=== PATIENT | female | born 1940 | race Caucasian/White ===

== ENCOUNTER 2019-12-04 14:32 | Inpatient (IN) ==
[2019-12-04] MEDS ORDERED: SODIUM CHLORIDE 0.9% 500 ML IV SCH (14:45)
--- NOTE | 2019-12-04 14:59 | XRay Report ---
XR chest 1V portable HISTORY: weakness COMPARISON: Chest 08/31/2019. FINDINGS: The visualized right ventriculoperitoneal shunt is intact. The heart remains enlarged. No e vidence for pulmonary edema. There are low lung volumes. No pleural effusions. No pneumothorax. A few bibasilar linear densities. No new focal lung consolidations to suggest pneumonia. IMPRESSION: Stable cardiomegaly. A few bibasilar linear densities favor subsegmental atelectasis. ACT 112: Negative or not required by law. Electronically signed by: Stephen Carroll M.D. 12/04/2019 2:58 PM
[2019-12-04 15:20] LABS: Basophils # (auto) 0.01 K/uL (0-0.2); Basophils % (auto) 0.1 %; Eosinophils # (auto) 0.22 K/uL (0-0.5); Eosinophils % (auto) 2.3 %; Hematocrit (blood only) 41.1 % (37-47); Hemoglobin 13.8 g/dL (12.0-16.0); Immature Granulocytes # (auto) 0.02 K/uL (0.00-0.02); Immature Granulocytes % (auto) 0.2 %; Lymphocytes # (auto) 1.19 K/uL (1.2-3.4); Lymphocytes % (auto) 12.2 %; Mean Corpuscular Hemoglobin 30.9 pg (25-34); Mean Corpuscular Hgb Conc 33.6 g/dL (32-36); Mean Corpuscular Volume 91.9 fL (80-100); Mean Platelet Volume 9.2 fL (7.4-10.4); Monocytes # (auto) 0.84 K/uL (0.11-0.59); Monocytes % (auto) 8.6 %; Neutrophils # (auto) 7.46 K/uL (1.4-6.5); Neutrophils % (auto) 76.6 %; Platelet Count 211 K/uL (130-400); RDW Coefficient of Variation 14.5 % (11.5-14.5); RDW Standard Deviation 48.9 fL (36.4-46.3); Red Blood Count 4.47 M/uL (4.2-5.4); White Blood Count 9.74 K/uL (4.8-10.8)
[2019-12-04 15:22] LABS: Base Excess VBG 3.3 mEq/L; HCO3 VBG 29 mmol/L; PCO2 VBG 47 mmHg (38-50); PO2 VBG 33 mmHg
[2019-12-04 15:23] LABS: Oxygen Saturation VBG < 60.0 %
[2019-12-04 15:38] LABS: Alanine Aminotransferase 31 U/L (12-78); Albumin Level 3.6 gm/dl (3.4-5.0); Aspartate Aminotransferase 32 U/L (15-37); Blood Urea Nitrogen 24 mg/dl (7-18); Calcium 9.9 mg/dl (8.5-10.1); Carbon Dioxide 28 mmol/L (21-32); Chloride 106 mmol/L (98-107); Creatinine Clr Calc Pharmacy 50.9 ml/min; Est GFR (African American) 59.2; Est GFR (Non-African American) 51.1; Glucose 165 mg/dl (70-99); Magnesium 1.9 mg/dl (1.8-2.4); Potassium 4.2 mmol/L (3.5-5.1); Sodium 139 mmol/L (136-145)
[2019-12-04 15:40] LABS: Prothrombin Time 10.3 Seconds (9.0-12.0)
[2019-12-04 15:48] LABS: Albumin Globulin Ratio 0.9 (0.9-2); Alkaline Phosphatase 130 U/L (45-117); Bilirubin,Total 0.3 mg/dl (0.2-1); Globulin 3.9 gm/dl (2.5-4.0); Total Protein 7.5 gm/dl (6.4-8.2); Troponin I < 0.015 ng/ml (0-0.045)
[2019-12-04 15:58] LABS: Appearance Urine Cloudy (Clear); Bilirubin Urine Negative (Negative); Blood Urine 3+ (Negative); Color Urine Yellow; Glucose Urine UA Negative (Negative); Ketones Urine Negative (Negative); Leukocyte Esterase Urine 2+ (Negative); Nitrite Urine Negative (Negative); Protein Urine Trace (Negative); Specific Gravity Urine 1.025 (1.000-1.030); Urobilinogen Urine Negative (Negative); pH Urine 6.5 (4.5-7.5)
[2019-12-04 16:11] LABS: Influenza A virus by PCR Neg for Influ A (Neg); Influenza B virus by PCR Neg for Influ B (Neg)
--- NOTE | 2019-12-04 16:12 | CT Scan Report ---
CT SCAN OF THE BRAIN WITHOUT IV CONTRAST CLINICAL HISTORY: Lethargy. COMPARISON STUDY: CT of the brain dated 02/08/2019. TECHNIQUE: Unenhanced axial CT scan of the brain is performed from the vertex to the skull base. A do se lowering technique was utilized adhering to the principles of ALARA. The examination is degraded b y metallic streak artifact from aneurysm coils. FINDINGS: Brain parenchyma: A ventriculostomy catheter from a right frontal approach is unchanged in position a nd terminates in the frontal horn of the right lateral ventricle. Aneurysm coils are noted in the sup rasellar region. There are age-related involutional changes noting moderate to advanced confluent herrera bcortical and periventricular microangiopathic change. Foci of encephalomalacia in the right frontal and high right parietal lobes are unchanged. Chronic lacunar infarcts are seen in the left internal c apsule and the left thalamus. There is no hemorrhage, mass effect, or evidence of acute territorial i schemia by CT criteria. Mendez-white matter differentiation is preserved. No extra-axial fluid collecti on is seen. Ventricles, sulci, cisterns: Prominent secondary to involutional change. A ventriculostomy catheter i s present as above. Ventricular caliber is unchanged from previous. Intracranial vasculature: There is atherosclerotic calcification of the cavernous carotid and vertebr al arteries. Calvarium: The skeletal structures are osteopenic. There is a right frontal regina hole. No depressed c alvarial fracture is seen. Soft tissues: There is a small high right posterior parietal scalp contusion. Sinuses and mastoids: The visualized paranasal sinuses are clear. The mastoid air cells are well pneu matized. Orbits: The bony orbits are grossly intact. IMPRESSION: 1. There is no hemorrhage, mass effect, or evidence of acute territorial ischemia by CT criteria. 2. Aneurysm coils and ventriculostomy catheter as above. Ventricular caliber is unchanged from previo us. Electronically signed by: Willian Kendall M.D. 12/04/2019 4:11 PM
[2019-12-04] MEDS ORDERED: cefTRIAXone SODIUM 2,000 MG/70 ML BAG IV STA (16:33)
[2019-12-04 16:59] LABS: Appearance Urine Clear (Clear); Bilirubin Urine Negative (Negative); Blood Urine Negative (Negative); Color Urine Yellow; Glucose Urine UA Negative (Negative); Ketones Urine Negative (Negative); Leukocyte Esterase Urine Negative (Negative); Nitrite Urine Negative (Negative); Protein Urine Negative (Negative); Specific Gravity Urine 1.015 (1.000-1.030); Urobilinogen Urine Negative (Negative); pH Urine 7.5 (4.5-7.5)
--- NOTE | 2019-12-04 17:12 | History & Physical Report ---
Date of Service December 04, 2019 Assessment & Plan (1) Weakness: She was transferred from [facility] with extreme weakness and possible UTI Her relevant investigations remain unremarkable and UA did not show any possible infection She will be admitted to medical floor PT and OT Trace to 1+ edema noted bilaterally Right lower extremity looked reddish with edema and increasing warmth May have spreading cellulitis Will start IV ceftriaxone (2) Fatigue: As above (3) HTN (hypertension): History of hypertension and is on multiple medications Blood pressure noted to be very high in the emergency room with systolic 220 and diastolic 97 We will give labetalol intravenously and continue her current medications Extremely high blood pressure may be making her wake (4) DM II (diabetes mellitus, type II), controlled: We will hold metformin Put her on sliding scale insulin coverage (5) CVA (cerebral vascular accident): No acute findings (6) Depression: Continue current medications (7) Subarachnoid hemorrhage: History of subarachnoid hemorrhage CT scan of the head showed aneurysm coils and ventriculostomy catheter remain intact without any significant associated findings DVT prophylaxis Subcu heparin CODE STATUS DNR/DNI Discussed with the sister History of Present Illness Chief Complaint: 1 cm from [facility] with increasing weakness and problem with urination Primary Care Provider: Woody Khalil She is a 79-year-old obese female with significant past medical history of hypertension, hyperlipidemia, type 2 diabetes, history of CVA, history of subarachnoid hemorrhage, depression and history of breast cancer apparently was sent from [facility] this afternoon with increasing weakness and inability to pass urine. She remains extremely weak and lethargic but denies any symptoms of chest pain, shortness of breath, abdominal pain, nausea and or vomiting, any headache and/or blurred vision or any increasing weakness involving any particular side of the body. She mentioned to have some problem with urination without any dysuria and she thinks that has been taken care of in the emergency room. Denies any problem with her bowel habit. Her relevant investigations in the ER including UA, chest x-ray, CT scan of the head and other blood works remained unremarkable. Given the complaints of extreme weakness and tiredness and with high blood pressure in the emergency room in spite of multiple medications for the blood pressure she was admitted to medical floor with observation for continuation of care. Allergies Allergy/AdvReac Type Severity Reaction Status Date / Time Sulfa (Sulfonamide AdvReac Unknown Unverified 12/04/19 15:29 Antibiotics) Home Medications Home Medications Medication Instructions Recorded Confirmed Type acetaminophen 1,000 mg PO BID PRN MDD 3GM APAP 10/21/18 12/04/19 History IN 24 HRS aspirin [Aspirin Low Dose] 81 mg PO QAM 10/21/18 12/04/19 History atorvastatin 10 mg PO QAM 10/21/18 12/04/19 History bupropion HCl [Wellbutrin XL] 150 mg PO QAM 10/21/18 12/04/19 History losartan 100 mg PO QAM 10/21/18 12/04/19 History metformin 1,000 mg PO QAM 10/21/18 12/04/19 History metoprolol succinate 50 mg PO QAM 10/21/18 12/04/19 History sertraline 150 mg PO QAM 10/21/18 12/04/19 History metoprolol succinate 25 mg PO QAM 01/07/19 12/04/19 History amlodipine 5 mg PO QAM 08/31/19 12/04/19 History Past Med/Surg History Social History Preferred Language: Cameroonian Communication Ability: Effective Anime Designer Required: No Beliefs That Will Affect Care: None marital status: / Current Living Situation: Personal Care Facility Current Living Situation Comment: resides at [facility] current occupational status: retired Other Information That Helps Us Care for You: No Feels Safe at Home: Yes Safety Concerns: Feels Safe At This Time Smoking Status: Former smoker Do You Dip or Chew Tobacco: No ; Second Hand Exposure: No ; Tobacco Cessation Education Requested by Patient: No Hx Alcohol Use: No Hx Substance Use: No Review of Systems Review of Systems: All systems reviewed & are unremarkable except as noted in HPI & below Physical Exam Physical Exam: Lying in bed comfortably very weak and lethargic Constitutional: well developed, well nourished, + ill appearing and + obese; no acute distress Eyes: PERRL, conjunctivae normal, anicteric sclerae ENMT: external ear and nose normal, oropharynx normal Neck: trachea midline, no thyromegaly Respiratory: normal respiratory effort; no respiratory distress Auscultation: lungs clear to auscultation bilaterally and + diminished lung sounds; no crackles and no wheezes Cardiovascular: Rate/Rhythm: regular rate and regular rhythm Heart Sounds: no murmur Extremities: + edema (Trace to 1+ edema bilaterally. Minimal re dness and warmth noted at the left leg) Gastrointestinal (Abdomen): Inspection/Auscultation: abdomen normal to inspection and normal bowel sounds; abdomen not distended Percussion/Palpation: abdomen soft; abdomen nontender Musculoskeletal: No acute arthritis in any joint Neurologic: moves all extremities; no focal motor deficits Generally very weak and lethargic Lymphatic: no cervical or axillary lymphadenopathy Results & Data Vital Signs (Past 12 Hours) Vital Signs Temp Pulse Pulse Resp BP BP Pulse Ox 12/04/19 16:54 72 96 12/04/19 16:30 69 26 H 12/04/19 15:30 73 28 H 178/112 H 93 12/04/19 15:21 71 24 198/96 H 92 12/04/19 15:18 92 12/04/19 14:38 36.6 C 75 16 191/92 H 92 Laboratory Results Short CBC 12/04/19 Range/Units 15:08 WBC 9.74 (4.8-10.8) K/uL Hgb 13.8 (12.0-16.0) g/dL Hct 41.1 (37-47) % Plt Count 211 (130-400) K/uL BMP 12/04/19 15:08 Sodium 139 Potassium 4.2 Chloride 106 Carbon Dioxide 28 BUN 24 H Creatinine 1.04 Glucose 165 H Calcium 9.9 Cardiac Enzymes 12/04/19 Range/Units 15:08 Troponin I < 0.015 (0-0.045) ng/ml Liver Function 12/04/19 Range/Units 15:08 Total Bilirubin 0.3 (0.2-1) mg/dl AST 32 (15-37) U/L ALT 31 (12-78) U/L Alkaline Phosphatase 130 H (45-117) U/L Albumin 3.6 (3.4-5.0) gm/dl Urine 12/04/19 12/04/19 Range/Units 15:42 16:40 Urine Color Yellow Yellow Urine Appearance Cloudy A Clear (Clear) Urine pH 6.5 7.5 (4.5-7.5) Ur Specific [place] 1.025 1.015 (1.000-1.030) Urine Protein Trace H Negative (Negative) Urine Glucose (UA) Negative Negative (Negative) Medications Administered Current Inpatient Medications Heparin Sodium (Porcine) (Heparin Sodium (Porcine)) 5,000 units SQ Q12 KARLA Stop: 01/03/20 20:59 Ceftriaxone Sodium 1,000 mg/ (Dextrose) 50 mls @ 100 mls/hr IV Q24H KARLA; Protocol Stop: 12/09/19 17:14 Code Status & VTE Plan VTE Prophylaxis Plan VTE Prophylaxis will be ordered: Yes (1) Fatigue Fatigue type: unspecified Qualified Code(s): R53.83 - Other fatigue (2) HTN (hypertension) Hypertension type: unspecified Qualified Code(s): I10 - Essential (primary) hypertension
[2019-12-04] MEDS ORDERED: cefTRIAXone SODIUM 1,000 MG in DEXTROSE 5% 50 ML IV SCH (17:15)
[2019-12-04] MEDS ORDERED: LABETALOL HCL IV 5 MG/ML 20ML IV STA (17:23)
[2019-12-04] MEDS ORDERED: PNEUMOCOCCAL POLYSACCHARIDES 25 MCG/0.5 ML VIAL/SYR IM ONE (17:49)
[2019-12-04] MEDS ORDERED: PNEUMOCOCCAL ADMINISTRATION CHARGE ONE (17:49)
[2019-12-04] MEDS ORDERED: ACETAMINOPHEN 500 MG TAB PO PRN (18:50)
[2019-12-04] MEDS ORDERED: GLUCOSE 10 TABS/TUBE PO PRN (19:45)
[2019-12-04] MEDS ORDERED: GLUCOSE 40% GEL 15 GM TUBE PO PRN (19:45)
[2019-12-04] MEDS ORDERED: DEXTROSE 50% 50 ML SYRINGE IV PRN (19:45)
[2019-12-04] MEDS ORDERED: GLUCAGON FOR INJ 1 MG VIAL IM PRN (19:45)
[2019-12-04] MEDS ORDERED: CARBOHYDRATES FOR HYPOGLYCEMIA PO PRN (19:45)
[2019-12-04] MEDS: AMLODIPINE BESYLATE 5 MG TAB PO SCH (20:07)
[2019-12-04] MEDS: HEPARIN SOD 5,000 UNIT/0.5 ML VIAL SQ SCH (20:07)
[2019-12-04] MEDS: INSULIN ASPART 100 UNITS/ML 3 ML PEN SC SCH (20:07)
--- NOTE | 2019-12-04 21:45 | Emergency Department Note ---
Entered by Jame Ayala acting as a scribe for Lonnie Chacko M.D. History of Present Illness General Chief complaint: Lethargic Stated complaint: Lethargic Time Seen by Provider: 12/04/19 14:33 Source: patient and other (ED nurse) History of Present Illness Onset (ago): day(s) (few) Location: head (tiredness) Pain Consistency: + other (worsening) Relieved By: + none Associated symptoms: + denies other symptoms (dizziness, pain, feeling cold, numbness, urinary symptoms); no cough, no nausea/vomiting and no shortness of breath The patient is a 79 year old F who presents to the Emergency Room with complaints of worsening tiredness that started a few days ago. The HPI was provided by the patient and the ED nurse. The ED nurse states that the patient is from [facility]. She notes that for the past few days, the patient has been tired. She adds that the patient has a history of diabetes. She states that the patient had a blood sugar level of 116 today. She notes that the patient is currently 93% oxygen saturation on room air. The patient states that she has never experienced tiredness like this before. She notes that she had lunch today. She adds that she was able to get up today without dizziness or feeling off balance. She states that she was treated for lower leg cellulitis recently. She adds that her legs are doing better now. She denies that she is currently experiencing pain, coughing, feeling cold, shortness of breath, nausea, numbness and urinary symptoms. She also denies any recent falls. Home Medications Home Medications Medication Instructions Recorded Confirmed Type acetaminophen 1,000 mg PO BID PRN MDD 3GM APAP 10/21/18 12/04/19 History IN 24 HRS aspirin [Aspirin Low Dose] 81 mg PO QAM 10/21/18 12/04/19 History atorvastatin 10 mg PO QAM 10/21/18 12/04/19 History bupropion HCl [Wellbutrin XL] 150 mg PO QAM 10/21/18 12/04/19 History losartan 100 mg PO QAM 10/21/18 12/04/19 History metformin 1,000 mg PO QAM 10/21/18 12/04/19 History metoprolol succinate 50 mg PO QAM 10/21/18 12/04/19 History sertraline 150 mg PO QAM 10/21/18 12/04/19 History metoprolol succinate 25 mg PO QAM 01/07/19 12/04/19 History amlodipine 5 mg PO QAM 08/31/19 12/04/19 History Allergies Allergy/AdvReac Type Severity Reaction Status Date / Time Sulfa (Sulfonamide AdvReac Unknown Unverified 12/04/19 15:29 Antibiotics) Past Med/Surg History Social History Preferred Language: Tongan Communication Ability: Effective White Kid Buffer Required: No Beliefs That Will Affect Care: None marital status: / Current Living Situation: Personal Care Facility Current Living Situation Comment: resides at [facility] current occupational status: retired Other Information That Helps Us Care for You: No Feels Safe at Home: Yes Safety Concerns: Feels Safe At This Time Smoking Status: Former smoker Do You Dip or Chew Tobacco: No ; Second Hand Exposure: No ; Tobacco Cessation Education Requested by Patient: No Hx Alcohol Use: No Hx Substance Use: No Review of Systems See HPI for pertinent positives & negatives. and A total of 10 systems reviewed and were otherwise negative Physical Exam Vital Signs Vital Signs - 24 hr 12/04/19 14:38 12/04/19 15:18 12/04/19 15:21 Temperature 36.6 C Temperature Source Oral Pulse Rate 75 Pulse Rate [Apical] 71 Pulse Rate from SpO2 Sensor Pulse Rhythm Regular Pulse Strength Normal Respiratory Rate 16 24 Respiratory Effort / Characteristics Non-Labored Respiratory Depth Normal Normal Respiratory Pattern Regular Blood Pressure 191/92 H Blood Pressure [Right Arm] 198/96 H Blood Pressure Mean 125 Blood Pressure Mean [Right Arm] 130 Blood Pressure Position Sitting Pulse Oximetry 92 92 92 Oxygen Delivery Method Room Air Room Air Room Air Sepsis Recent Fever Within 48 Hours No Sepsis Action Taken by Nursing No Action Required 12/04/19 15:30 12/04/19 16:30 12/04/19 16:54 Temperature Temperature Source Pulse Rate 73 69 Pulse Rate [Apical] 72 Pulse Rate from SpO2 Sensor 73 Pulse Rhythm Pulse Strength Respiratory Rate 28 H 26 H Respiratory Effort / Characteristics Respiratory Depth Respiratory Pattern Blood Pressure 178/112 H Blood Pressure [Right Arm] Blood Pressure Mean 132 Blood Pressure Mean [Right Arm] Blood Pressure Position Pulse Oximetry 93 96 Oxygen Delivery Method Room Air Sepsis Recent Fever Within 48 Hours Sepsis Action Taken by Nursing 12/04/19 17:02 Temperature Temperature Source Pulse Rate 69 Pulse Rate [Apical] Pulse Rate from SpO2 Sensor 69 Pulse Rhythm Pulse Strength Respiratory Rate 25 H Respiratory Effort / Characteristics Respiratory Depth Respiratory Pattern Blood Pressure 220/97 H Blood Pressure [Right Arm] Blood Pressure Mean 103 Blood Pressure Mean [Right Arm] Blood Pressure Position Pulse Oximetry 96 Oxygen Delivery Method Room Air Sepsis Recent Fever Within 48 Hours Sepsis Action Taken by Nursing GENERAL: Awake, alert, fatigued-appearing eyes closed HENT: Normocephalic, atraumatic. EYES: Normal conjunctiva. Sclera non-icteric. NECK: Supple. No nuchal rigidity. RESPIRATORY: Clear to auscultation other than diminished bases. Normal respiratory effort. CARDIAC: Normal rate. Normal rhythm. Extremities warm and well perfused. GI: Soft, non-distended. No tenderness to palpation. No rebound or guarding. MUSCULOSKELETAL: Atraumatic. Chest examination reveals no tenderness. LOWER EXTREMITIES: Calves are equal size bilaterally and non-tender. NEURO: Normal sensorium. No sensory or motor deficits noted. No facial droop. No slurred speech. Does state that she believes that it is Thursday and October. SKIN: Warm and dry. No jaundice noted. Some slight chronic stasis changes of the right lower leg. Course Course 1436: The patient was evaluated in room B10. A complete history and physical exam was performed. 1633: I updated the patient and her sister on her test results and the plan. I am paging Dr. Ordonez for admission. 1639: I reviewed the patient's case with Dr. Leah Ordonez, [facility] Hospitalist. He will evaluate the patient for further management. Administered Medications Amlodipine Besylate (Norvasc) 5 mg PO QAM [facility] Stop: 01/03/20 19:29 Last Admin: 12/04/19 20:07 Dose: 5 mg Documented by: [id number] Heparin Sodium (Porcine) (Heparin Sodium (Porcine)) 5,000 units SQ Q12 [facility] Stop: 01/03/20 20:59 Last Admin: 12/04/19 20:07 Dose: 5,000 units Documented by: [id number] Cosigned by: [id number] Insulin Aspart (Novolog Flexpen) 0 units SC ACHS [facility] Stop: 01/03/20 20:59 Last Admin: 12/04/19 20:07 Dose: 3 units Documented by: [id number] Cosigned by: [id number] Discontinued Medications Sodium Chloride (Nss) 500 mls @ 999 mls/hr IV .Q31M KARLA Stop: 12/04/19 15:15 Last Infusion: 12/04/19 16:24 Dose: 0 mls/hr Documented by: [id number] Admin: 12/04/19 15:53 Dose: 999 mls/hr Documented by: [id number] Ceftriaxone Sodium (Rocephin) 2,000 mg in 70 mls @ 140 mls/hr IV NOW STA Stop: 12/04/19 17:02 Last Infusion: 12/04/19 17:43 Dose: 0 mls/hr Documented by: [id number] Admin: 12/04/19 17:04 Dose: 140 mls/hr Documented by: [id number] Ceftriaxone Sodium 1,000 mg/ (Dextrose) 50 mls @ 100 mls/hr IV Q24H KARLA; Protocol Stop: 12/09/19 17:14 Last Admin: 12/04/19 19:24 Dose: Not Given Documented by: [id number] Labetalol HCl (Normodyne) 10 mg IV NOW STA Stop: 12/04/19 17:24 Last Admin: 12/04/19 17:42 Dose: 10 mg Documented by: [id number] Cosigned by: [id number] Medical Decision Making Differential Diagnosis Differential diagnosis: Etiologies such as metabolic, infection, hypo/hyperglycemia, electrolyte abnormalities, cardiac sources, intracerebral event, toxicologic, neurologic, as well as others were entertained. Medical Records Attestation: I reviewed the patient's medical records. Home Medications Current Medication List: was personally reviewed by me Laboratory Data Attestation: I reviewed the patient's lab results. Result diagrams: 12/04/19 15:08 12/04/19 15:08 Lab Results 12/04/19 12/04/19 12/04/19 Range/Units 15:08 15:08 15:08 WBC 9.74 (4.8-10.8) K/uL RBC 4.47 (4.2-5.4) M/uL Hgb 13.8 (12.0-16.0) g/dL Hct 41.1 (37-47) % MCV 91.9 (80-100) fL MCH 30.9 (25-34) pg MCHC 33.6 (32-36) g/dL RDW Std Deviation 48.9 H (36.4-46.3) fL RDW Coeff of Justin 14.5 (11.5-14.5) % Plt Count 211 (130-400) K/uL MPV 9.2 (7.4-10.4) fL Immature Gran % (Auto) 0.2 % Neut % (Auto) 76.6 % Lymph % (Auto) 12.2 % [place] % (Auto) 8.6 % Eos % (Auto) 2.3 % Baso % (Auto) 0.1 % Immature Gran # (Auto) 0.02 (0.00-0.02) K/uL Neut # (Auto) 7.46 H (1.4-6.5) K/uL Lymph # (Auto) 1.19 L (1.2-3.4) K/uL [place] # (Auto) 0.84 H (0.11-0.59) K/uL Eos # (Auto) 0.22 (0-0.5) K/uL Baso # (Auto) 0.01 (0-0.2) K/uL PT 10.3 (9.0-12.0) Seconds INR 1.0 (0.9-1.1) VBG pH (7.36-7.41) VBG pCO2 (38-50) mmHg VBG pO2 mmHg VBG HCO3 mmol/L VBG O2 Saturation % VBG Base Excess mEq/L Barometric Pressure mm/Hg Sodium 139 (136-145) mmol/L Potassium 4.2 (3.5-5.1) mmol/L Chloride 106 (98-107) mmol/L Carbon Dioxide 28 (21-32) mmol/L Anion Gap 5.0 (3-11) BUN 24 H (7-18) mg/dl Creatinine 1.04 (0.6-1.2) mg/dl Est Cr Clr Drug Dosing 50.9 ml/min Est GFR ( Amer) 59.2 Est GFR (Non-Af Amer) 51.1 BUN/Creatinine Ratio 23.0 H (10-20) Glucose 165 H (70-99) mg/dl Calcium 9.9 (8.5-10.1) mg/dl Magnesium 1.9 (1.8-2.4) mg/dl Total Bilirubin 0.3 (0.2-1) mg/dl AST 32 (15-37) U/L ALT 31 (12-78) U/L Alkaline Phosphatase 130 H (45-117) U/L Ammonia (11-32) umol/L Troponin I < 0.015 (0-0.045) ng/ml Total Protein 7.5 (6.4-8.2) gm/dl Albumin 3.6 (3.4-5.0) gm/dl Globulin 3.9 (2.5-4.0) gm/dl Albumin/Globulin Ratio 0.9 (0.9-2) TSH 1.860 (0.300-4.500) uIu/ml Urine Color Urine Appearance (Clear) Urine pH (4.5-7.5) Ur Specific Coulters (1.000-1.030) Urine Protein (Negative) Urine Glucose (UA) (Negative) Urine Ketones (Negative) Urine Blood (Negative) Urine Nitrite (Negative) Urine Bilirubin (Negative) Urine Urobilinogen (Negative) Ur Leukocyte Esterase (Negative) Influenza Type A (PCR) (Neg) Influenza Type B (PCR) (Neg) 12/04/19 12/04/19 12/04/19 Range/Units 15:08 15:08 15:20 WBC (4.8-10.8) K/uL RBC (4.2-5.4) M/uL Hgb (12.0-16.0) g/dL Hct (37-47) % MCV (80-100) fL MCH (25-34) pg MCHC (32-36) g/dL RDW Std Deviation (36.4-46.3) fL RDW Coeff of Justin (11.5-14.5) % Plt Count (130-400) K/uL MPV (7.4-10.4) fL Immature Gran % (Auto) % Neut % (Auto) % Lymph % (Auto) % [place] % (Auto) % Eos % (Auto) % Baso % (Auto) % Immature Gran # (Auto) (0.00-0.02) K/uL Neut # (Auto) (1.4-6.5) K/uL Lymph # (Auto) (1.2-3.4) K/uL [place] # (Auto) (0.11-0.59) K/uL Eos # (Auto) (0-0.5) K/uL Baso # (Auto) (0-0.2) K/uL PT (9.0-12.0) Seconds INR (0.9-1.1) VBG pH 7.40 (7.36-7.41) VBG pCO2 47 (38-50) mmHg VBG pO2 33 mmHg VBG HCO3 29 mmol/L VBG O2 Saturation < 60.0 % VBG Base Excess 3.3 mEq/L Barometric Pressure 740.7 mm/Hg Sodium (136-145) mmol/L Potassium (3.5-5.1) mmol/L Chloride (98-107) mmol/L Carbon Dioxide (21-32) mmol/L Anion Gap (3-11) BUN (7-18) mg/dl Creatinine (0.6-1.2) mg/dl Est Cr Clr Drug Dosing ml/min Est GFR ( Amer) Est GFR (Non-Af Amer) BUN/Creatinine Ratio (10-20) Glucose (70-99) mg/dl Calcium (8.5-10.1) mg/dl Magnesium (1.8-2.4) mg/dl Total Bilirubin (0.2-1) mg/dl AST (15-37) U/L ALT (12-78) U/L Alkaline Phosphatase (45-117) U/L Ammonia 11.1 (11-32) umol/L Troponin I (0-0.045) ng/ml Total Protein (6.4-8.2) gm/dl Albumin (3.4-5.0) gm/dl Globulin (2.5-4.0) gm/dl Albumin/Globulin Ratio (0.9-2) TSH (0.300-4.500) uIu/ml Urine Color Urine Appearance (Clear) Urine pH (4.5-7.5) Ur Specific Coulters (1.000-1.030) Urine Protein (Negative) Urine Glucose (UA) (Negative) Urine Ketones (Negative) Urine Blood (Negative) Urine Nitrite (Negative) Urine Bilirubin (Negative) Urine Urobilinogen (Negative) Ur Leukocyte Esterase (Negative) Influenza Type A (PCR) Neg for Influ A (Neg) Influenza Type B (PCR) Neg for Influ B (Neg) 12/04/19 12/04/19 Range/Units 15:42 16:40 WBC (4.8-10.8) K/uL RBC (4.2-5.4) M/uL Hgb (12.0-16.0) g/dL Hct (37-47) % MCV (80-100) fL MCH (25-34) pg MCHC (32-36) g/dL RDW Std Deviation (36.4-46.3) fL RDW Coeff of Justin (11.5-14.5) % Plt Count (130-400) K/uL MPV (7.4-10.4) fL Immature Gran % (Auto) % Neut % (Auto) % Lymph % (Auto) % [place] % (Auto) % Eos % (Auto) % Baso % (Auto) % Immature Gran # (Auto) (0.00-0.02) K/uL Neut # (Auto) (1.4-6.5) K/uL Lymph # (Auto) (1.2-3.4) K/uL [place] # (Auto) (0.11-0.59) K/uL Eos # (Auto) (0-0.5) K/uL Baso # (Auto) (0-0.2) K/uL PT (9.0-12.0) Seconds INR (0.9-1.1) VBG pH (7.36-7.41) VBG pCO2 (38-50) mmHg VBG pO2 mmHg VBG HCO3 mmol/L VBG O2 Saturation % VBG Base Excess mEq/L Barometric Pressure mm/Hg Sodium (136-145) mmol/L Potassium (3.5-5.1) mmol/L Chloride (98-107) mmol/L Carbon Dioxide (21-32) mmol/L Anion Gap (3-11) BUN (7-18) mg/dl Creatinine (0.6-1.2) mg/dl Est Cr Clr Drug Dosing ml/min Est GFR ( Amer) Est GFR (Non-Af Amer) BUN/Creatinine Ratio (10-20) Glucose (70-99) mg/dl Calcium (8.5-10.1) mg/dl Magnesium (1.8-2.4) mg/dl Total Bilirubin (0.2-1) mg/dl AST (15-37) U/L ALT (12-78) U/L Alkaline Phosphatase (45-117) U/L Ammonia (11-32) umol/L Troponin I (0-0.045) ng/ml Total Protein (6.4-8.2) gm/dl Albumin (3.4-5.0) gm/dl Globulin (2.5-4.0) gm/dl Albumin/Globulin Ratio (0.9-2) TSH (0.300-4.500) uIu/ml Urine Color Yellow Yellow Urine Appearance Cloudy A Clear (Clear) Urine pH 6.5 7.5 (4.5-7.5) Ur Specific Coulters 1.025 1.015 (1.000-1.030) Urine Protein Trace H Negative (Negative) Urine Glucose (UA) Negative Negative (Negative) Urine Ketones Negative Negative (Negative) Urine Blood 3+ H Negative (Negative) Urine Nitrite Negative Negative (Negative) Urine Bilirubin Negative Negative (Negative) Urine Urobilinogen Negative Negative (Negative) Ur Leukocyte Esterase 2+ H Negative (Negative) Influenza Type A (PCR) (Neg) Influenza Type B (PCR) (Neg) Imaging Data Radiologist's Impression: Radiology results as stated below per my review and the radiologist's interpretation: XR chest 1V portable HISTORY: weakness COMPARISON: Chest 08/31/2019. FINDINGS: The visualized right ventriculoperitoneal shunt is intact. The heart remains enlarged. No evidence for pulmonary edema. There are low lung volumes. No pleural effusions. No pneumothorax. A few bibasilar linear densities. No new focal lung consolidations to suggest pneumonia. IMPRESSION: Stable cardiomegaly. A few bibasilar linear densities favor subsegmental atelectasis. ACT 112: Negative or not required by law. Electronically signed by: Stephen Carroll M.D. 12/04/2019 2:[address] SCAN OF THE BRAIN WITHOUT IV CONTRAST CLINICAL HISTORY: Lethargy. COMPARISON STUDY: CT of the brain dated 02/08/2019. TECHNIQUE: Unenhanced axial CT scan of the brain is performed from the vertex to the skull base. A dose lowering technique was utilized adhering to the anabella ncijose martin of LATANYA. The examination is degraded by metallic streak artifact from aneurysm coils. FINDINGS: Brain parenchyma: A ventriculostomy catheter from a right frontal approach is unchanged in position and terminates in the frontal horn of the right lateral ventricle. Aneurysm coils are noted in the suprasellar region. There are age- related involutional changes noting moderate to advanced confluent subcortical and periventricular microangiopathic change. Foci of encephalomalacia in the rig ht frontal and high right parietal lobes are unchanged. Chronic lacunar infarcts are seen in the left internal capsule and the left thalamus. There is no hemorrhage, mass effect, or evidence of acute territorial ischemia by CT criteria. Mendez-white matter differentiation is preserved. No extra-axial fluid collection is seen. Ventricles, sulci, cisterns: Prominent secondary to involutional change. A ventriculostomy catheter is present as above. Ventricular caliber is unchanged from previous. Intracranial vasculature: There is atherosclerotic calcification of the cavernous carotid and vertebral arteries. Calvarium: The skeletal structures are osteopenic. There is a right frontal regina hole. No depressed calvarial fracture is seen. Soft tissues: There is a small high right posterior parietal scalp contusion. Sinuses and mastoids: The visualized paranasal sinuses are clear. The mastoid ai r cells are well pneumatized. Orbits: The bony orbits are grossly intact. IMPRESSION: 1. There is no hemorrhage, mass effect, or evidence of acute territorial ischemia by CT criteria. 2. Aneurysm coils and ventriculostomy catheter as above. Ventricular caliber is unchanged from previous. Electronically signed by: Willian Kendall M.D. 12/04/2019 4:11 PM ECG Data Attestation: I personally reviewed and interpreted this ECG as follows: Indication: + weakness Rate (beats per minute): 73 Rhythm: + normal sinus ECG Intervals/blocks: + Normal QT-c ECG [place]: + Left axis deviation ECG ST segments: no ST depression and no ST elevation ECG Findings: no PVCs Blood Pressure Blood Pressure Findings: Elevated blood pressure Blood Pressure Disposition: further management by hospitalist WERNER Narrative Continuous Cardiac Monitoring: An order was placed for continuous cardiac monit oring. The monitor shows a rate of 72 with NSR> Patient is a 79-year-old female history of breast cancer, CVA, diabetes, hyperlipidemia, hypertension, subarachnoid hemorrhage presenting today with the report of lethargy from her facility. Presents via ambulance. Patient has been maintained on aspirin at her facility. No reported trauma. No reported fevers. Evidently was only 89 to 90% on room air for EMS but is satting in the low to mid 90s here for us on room air. Patient able to open her eyes and follow commands but seems drowsy. No significant focal deficit. Right lower extremity cellulitis looks like it is basically healed at this juncture. Patient denies any pain, difficulty breathing, or abdominal symptoms. Patient states she is feels tired. CT head was completed. Chest x-ray was completed. EKG, flu, basic labs, urinalysis was sent. Ammonia and VBG as well as TSH was ordered. Broad differential entertained.. No significant leukocytosis or anemia. VBG is unremarkable. No significant electrolyte abnormality or signs of kidney injury. Negative troponin and a n ormal thyroid state. Patient's urinalysis does note some blood and leuk esterase concerning for possible infection. Patient is a history of alpha strep, E. coli, Klebsiella UTIs. Given a dose of ceftriaxone. Urine culture pending. Given her significant fatigue believe he requires admission for further observation here. Discussed with hospitalist. Patient was in agreement. Repeat urine cath completed by nursing staff appears clean at this juncture and antibiotic is going in. Unsure if she truly does have a UTI at this juncture. Patient does however seem significantly weak. Blood pressure is trending upwards to with systolics greater than 210. Given a small amount labetalol. Believe she still requires admission for further evaluation of her weakness and fatigue. Impression & Plan Acute UTI, Fatigue, Weakness, Hypertensive urgency Discharge Plan Visit Data *Final* Discharge Date/Time: 12/04/19 18:42 Chief Complaint: Lethargic Stated Complaint: Lethargic ED Provider: Lonnie Chacko Discharge Problem: Acute UTI, Fatigue, Weakness, Hypertensive urgency Patient Disposition: Admitted As Inpatient Discharge Instructions Interventions: ED Discharge Assessment Last Done: 12/04/19 18:42 Discharge Problem: Fatigue Qualifiers: Fatigue type: unspecified Qualified Code(s): R53.83 - Other fatigue The scribe's documentation has been prepared under my direction and personally reviewed by me in its entirety. I confirm that the note above accurately reflects all work, treatment, procedures, and medical decision making performed by me.
[2019-12-05 06:53] LABS: Basophils # (auto) 0.01 K/uL (0-0.2); Basophils % (auto) 0.2 %; Eosinophils # (auto) 0.15 K/uL (0-0.5); Eosinophils % (auto) 2.3 %; Hematocrit (blood only) 39.2 % (37-47); Hemoglobin 13.1 g/dL (12.0-16.0); Immature Granulocytes # (auto) 0.01 K/uL (0.00-0.02); Immature Granulocytes % (auto) 0.2 %; Lymphocytes # (auto) 1.25 K/uL (1.2-3.4); Lymphocytes % (auto) 19.3 %; Mean Corpuscular Hemoglobin 30.3 pg (25-34); Mean Corpuscular Hgb Conc 33.4 g/dL (32-36); Mean Corpuscular Volume 90.7 fL (80-100); Mean Platelet Volume 9.5 fL (7.4-10.4); Monocytes # (auto) 0.78 K/uL (0.11-0.59); Monocytes % (auto) 12.1 %; Neutrophils # (auto) 4.27 K/uL (1.4-6.5); Neutrophils % (auto) 65.9 %; Platelet Count 188 K/uL (130-400); RDW Coefficient of Variation 14.2 % (11.5-14.5); Red Blood Count 4.32 M/uL (4.2-5.4); White Blood Count 6.47 K/uL (4.8-10.8)
[2019-12-05] MEDS: METOPROLOL SUCC 50MG EXT REL TAB PO SCH (07:42)
[2019-12-05] MEDS: LOSARTAN POTASSIUM 50 MG TAB PO SCH (07:42)
[2019-12-05 07:43] LABS: BUN Creatinine Ratio 19.8 (10-20); Calcium 9.7 mg/dl (8.5-10.1); Creatinine Clr Calc Pharmacy 69.7 ml/min; Est GFR (African American) 86.5; Est GFR (Non-African American) 74.6; Magnesium 1.7 mg/dl (1.8-2.4); Potassium 3.3 mmol/L (3.5-5.1)
[2019-12-05] MEDS: AMLODIPINE BESYLATE 5 MG TAB PO SCH (07:44)
[2019-12-05] MEDS: METOPROLOL SUCC 25MG EXT REL TAB PO SCH (07:44)
[2019-12-05] MEDS: SERTRALINE HCL 50 MG TABLET PO SCH (09:56)
[2019-12-05] MEDS: ATORVASTATIN 10 MG TAB PO SCH (09:56)
[2019-12-05] MEDS: ASPIRIN 81 MG ECTAB PO SCH (09:57)
[2019-12-05] MEDS: BuPROPion XL 150 MG TABCR PO SCH (09:57)
[2019-12-05] MEDS: INSULIN ASPART 100 UNITS/ML 3 ML PEN SC SCH ×4 (09:57→20:37)
[2019-12-05] MEDS: HEPARIN SOD 5,000 UNIT/0.5 ML VIAL SQ SCH ×2 (09:57→20:39)
[2019-12-05] MEDS: MAGNESIUM SULFATE / D5W 1 GM/100 ML BAG IV SCH ×2 (14:16→15:17)
[2019-12-05] MEDS: POTASSIUM CHLORIDE / WTR 10 MEQ/100 ML PLCT IV SCH ×2 (14:17→15:28)
--- NOTE | 2019-12-05 14:24 | Hospitalist Progress Note ---
Date of Service December 05, 2019 Assessment & Plan (1) Weakness: -She was transferred from [facility] with extreme weakness and possible UTI, and was started on IV ceftriaxone -initially urine analysis did not reveal bacteria, but urine culture growing gram negative bacilli -continue IV ceftriaxone -assessment of the leg by admitting physician "Right lower extremity looked reddish with edema and increasing warmth" -however assessment by day time hospitalist does not support cellulitis on this exam on 12/05/2019 (2) Fatigue: weakness/fatigue may be a combination of urinary tract infection and hypertension (3) HTN (hypertension): -History of hypertension and is on multiple medications, as per patient's sister, the blood pressure can be high in the past -admission blood pressure noted to be very high in the emergency room with systolic 220 and diastolic 97 -was given labetalol initially -continue home dose medication of losartan 100 mg daily, amlodipine 5 mg daily, metoprolol succinate 75 mg daily -transfer to medical telemetry for closer monitoring of blood pressures Hypokalemia -serum potassium 3.3 on 12/05/2019, give IV supplements Hypomagnesemia -serum magnesium is 1.7 on 12/05/2019, give IV supplements (4) DM II (diabetes mellitus, type II), controlled: - hold metformin - sliding scale insulin coverage as needed (5) Depression: -Continue sertraline 150 mg daily (6) CVA (cerebral vascular accident): -history of stroke in the past -CT scan of the head on admission no hemorrhage, mass effect, or evidence of acute territorial ischemia by CT criteria. 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 she shakes her head no when asked if she wants to eat. head is generally slumped to the side. she does open her eyes intermittently but generally falls asleep. no obvious pain. no distress. hospitalist discussed with her sister ([phone]) at the bedside about patient's baseline health Review of Systems Review of Systems: Unobtainable due to cognitive status Physical Exam Constitutional: comfortable Eyes: PERRL, conjunctivae normal, anicteric sclerae EOM intact bilaterally Neck: patient sits on bed with head slumped down Respiratory: normal respiratory effort Cardiovascular: Rate/Rhythm: regular rate and regular rhythm Gastrointestinal (Abdomen): normal bowel sounds, soft, nontender, no hepatosplenomegaly Musculoskeletal: Head/Neck/Chest: normocephalic contractures of left hand Neurologic: cannot carry long conversation but appears to understand what is spoken to her, she knows that she is in a hospital. she shakes her head no when asked if she wants to eat. Results & Data ([facility]) Vital Signs (Past 12 Hours) Vital Signs Temp Pulse Resp BP Pulse Ox 12/05/19 07:29 36.5 C 66 16 179/82 H 91 (1) Fatigue Fatigue type: unspecified Qualified Code(s): R53.83 - Other fatigue (2) HTN (hypertension) Hypertension type: unspecified Qualified Code(s): I10 - Essential (primary) hypertension
--- NOTE | 2019-12-05 14:26 | Electrocardiogram Report ---
Test Reason : Blood Pressure : / mmHG Vent. Rate : 073 BPM Atrial Rate : 073 BPM P-R Int : 174 ms QRS Dur : 092 ms QT Int : 394 ms P-R-T Axes : 050 -40 014 degrees QTc Int : 434 ms Poor data quality, interpretation may be adversely affected Normal sinus rhythm Left axis deviation Inferior infarct , age undetermined Possible Anterior infarct , age undetermined Abnormal ECG When compared with ECG of 31-AUG-2019 03:48, No significant change was found Confirmed by Trevin Mccoy ([id number]) on 12/05/2019 2:26:06 PM Referred By: Confirmed By:Trevin Mccoy
[2019-12-05] MEDS: cefTRIAXone SODIUM 2,000 MG in DEXTROSE 5% 50 ML IV SCH (16:18)
[2019-12-05] MEDS ORDERED: cefTRIAXone SODIUM 1,000 MG in DEXTROSE 5% 50 ML IV SCH (17:15)
[2019-12-05] MEDS: HydrALAZINE HCL 20 MG/ML VIAL IV PRN ×2 (18:10→23:57)
[2019-12-06 07:07] LABS: Basophils # (auto) 0.01 K/uL (0-0.2); Basophils % (auto) 0.1 %; Eosinophils # (auto) 0.08 K/uL (0-0.5); Eosinophils % (auto) 1.1 %; Hematocrit (blood only) 39.2 % (37-47); Hemoglobin 13.2 g/dL (12.0-16.0); Immature Granulocytes # (auto) 0.01 K/uL (0.00-0.02); Immature Granulocytes % (auto) 0.1 %; Lymphocytes # (auto) 1.11 K/uL (1.2-3.4); Lymphocytes % (auto) 15.2 %; Mean Corpuscular Hemoglobin 30.3 pg (25-34); Mean Corpuscular Hgb Conc 33.7 g/dL (32-36); Mean Corpuscular Volume 89.9 fL (80-100); Mean Platelet Volume 9.7 fL (7.4-10.4); Monocytes # (auto) 0.81 K/uL (0.11-0.59); Monocytes % (auto) 11.1 %; Neutrophils # (auto) 5.26 K/uL (1.4-6.5); Neutrophils % (auto) 72.4 %; Platelet Count 191 K/uL (130-400); RDW Coefficient of Variation 14.2 % (11.5-14.5); RDW Standard Deviation 46.6 fL (36.4-46.3); Red Blood Count 4.36 M/uL (4.2-5.4); White Blood Count 7.28 K/uL (4.8-10.8)
[2019-12-06 07:46] LABS: Albumin Level 3.1 gm/dl (3.4-5.0); BUN Creatinine Ratio 20.3 (10-20); Calcium 9.8 mg/dl (8.5-10.1); Creatinine Clr Calc Pharmacy 66.6 ml/min; Est GFR (African American) 83.8; Est GFR (Non-African American) 72.3; Potassium 3.2 mmol/L (3.5-5.1)
[2019-12-06 07:49] LABS: Albumin Globulin Ratio 0.9 (0.9-2); Bilirubin,Total 0.5 mg/dl (0.2-1); Globulin 3.6 gm/dl (2.5-4.0); Total Protein 6.7 gm/dl (6.4-8.2)
--- NOTE | 2019-12-06 09:54 | Hospitalist Progress Note ---
Date of Service December 06, 2019 Assessment & Plan (1) Weakness: Urinary tract infection likely as Metabolic Encephalopathy from urinary tract infection -She was transferred from [facility] with extreme weakness and possible UTI, and was started on IV ceftriaxone -initially urine analysis did not reveal bacteria, but urine culture growing gram negative bacilli and this as speciated as pansensitive Klebsiella in the urine by 12/06/2019 -continue IV ceftriaxone as 2 grams daily, send blood culture on 12/06/2019 to rule out bacteremia -assessment of the leg by admitting physician "Right lower extremity looked reddish with edema and increasing warmth" -however assessment by day time hospitalist does not support cellulitis on this exam on 12/05/2019 (2) Fatigue: weakness/fatigue may be a combination of urinary tract infection and hypertension (3) HTN (hypertension): -History of hypertension and is on multiple medications, as per patient's sister, the blood pressure can be high in the past -admission blood pressure noted to be very high in the emergency room with systolic 220 and diastolic 97 -was given labetalol initially -continue home dose medication of losartan 100 mg daily, amlodipine 5 mg daily, metoprolol succinate 75 mg daily, has prn IV hydralazine, will increase amlodipine to 10 mg daily starting on 12/07/2019 -on medical telemetry for closer monitoring of blood pressures Hypokalemia -serum potassium 3.3 on 12/05/2019, give IV supplements -serum potassium is 3.2 on 12/06/2019, give IV supplements Hypomagnesemia -serum magnesium is 1.7 on 12/05/2019, give IV supplements (4) DM II (diabetes mellitus, type II), controlled: - hold metformin - sliding scale insulin coverage as needed (5) Depression: -Continue sertraline 150 mg daily (6) CVA (cerebral vascular accident): -history of stroke in the past -CT scan of the head on admission no hemorrhage, mass effect, or evidence of acute territorial ischemia by CT criteria. (7) Subarachnoid hemorrhage: -History of subarachnoid hemorrhage in the past -CT scan of the head on admission showed aneurysm coils and ventriculostomy catheter remain intact without any new changes DVT prophylaxis -Subcu heparin CODE STATUS DNR/DNI sister ([phone]) makes the medical decisions Admission and Anticipated Discharge Date Admission Date: December 05, 2019 Subjective sister ([phone]) at bedside. Patient is snoring very heavily. Nurse reports that patient did not take morning medications today. discussed with patient's sister that patient is to be continued to be hospitalized for urinary tract infection treatment and blood pressure control. have expressed to her sister that depending on patient's mental status in the future she may need upgrade beyond personal care services from [facility] Review of Systems Review of Systems: All systems reviewed & are unremarkable except as noted in HPI & below Physical Exam Constitutional: comfortable Eyes: EOM intact bilaterally Neck: normal visual inspection Respiratory: normal respiratory effort Cardiovascular: Rate/Rhythm: regular rate and regular rhythm Gastrointestinal (Abdomen): normal bowel sounds, soft, nontender, no hepatosplenomegaly Musculoskeletal: Head/Neck/Chest: normocephalic Results & Data ([facility]) Vital Signs (Past 12 Hours) Vital Signs Temp Pulse Pulse Resp BP Pulse Ox 12/06/19 07:33 66 12/06/19 07:16 37.2 C 66 18 179/84 H 92 12/06/19 04:00 37.4 C 69 19 172/85 H 90 12/06/19 00:46 67 12/05/19 23:52 176/80 H 12/05/19 23:00 36.7 C 69 22 189/81 H 90 (1) Fatigue Fatigue type: unspecified Qualified Code(s): R53.83 - Other fatigue (2) HTN (hypertension) Hypertension type: unspecified Qualified Code(s): I10 - Essential (primary) hypertension
[2019-12-06] MEDS: LOSARTAN POTASSIUM 50 MG TAB PO SCH (10:21)
[2019-12-06] MEDS: METOPROLOL SUCC 50MG EXT REL TAB PO SCH (10:21)
[2019-12-06] MEDS: HEPARIN SOD 5,000 UNIT/0.5 ML VIAL SQ SCH ×2 (10:21→20:18)
[2019-12-06] MEDS: ASPIRIN 81 MG ECTAB PO SCH (10:21)
[2019-12-06] MEDS: SERTRALINE HCL 50 MG TABLET PO SCH (10:22)
[2019-12-06] MEDS: METOPROLOL SUCC 25MG EXT REL TAB PO SCH (10:23)
[2019-12-06] MEDS: ATORVASTATIN 10 MG TAB PO SCH (10:23)
[2019-12-06] MEDS: INSULIN ASPART 100 UNITS/ML 3 ML PEN SC SCH ×4 (10:27→20:16)
[2019-12-06] MEDS: BuPROPion XL 150 MG TABCR PO SCH (10:28)
[2019-12-06] MEDS: POTASSIUM CHLORIDE / WTR 10 MEQ/100 ML PLCT IV SCH ×2 (12:50→13:58)
[2019-12-06] MEDS: cefTRIAXone SODIUM 2,000 MG in DEXTROSE 5% 50 ML IV SCH (15:57)
[2019-12-06] MEDS: HydrALAZINE HCL 20 MG/ML VIAL IV PRN (15:57)
[2019-12-06] MEDS: AMLODIPINE BESYLATE 5 MG TAB PO SCH (17:15)
[2019-12-07] MEDS: HydrALAZINE HCL 20 MG/ML VIAL IV PRN (00:48)
[2019-12-07] MEDS: ASPIRIN 81 MG ECTAB PO SCH (09:00)
[2019-12-07] MEDS: INSULIN ASPART 100 UNITS/ML 3 ML PEN SC SCH ×4 (09:00→20:38)
[2019-12-07] MEDS: HEPARIN SOD 5,000 UNIT/0.5 ML VIAL SQ SCH (09:01)
[2019-12-07] MEDS: ATORVASTATIN 10 MG TAB PO SCH (09:01)
[2019-12-07] MEDS: LOSARTAN POTASSIUM 50 MG TAB PO SCH (09:01)
[2019-12-07] MEDS: SERTRALINE HCL 50 MG TABLET PO SCH (09:01)
[2019-12-07] MEDS: METOPROLOL SUCC 50MG EXT REL TAB PO SCH (09:01)
[2019-12-07] MEDS: METOPROLOL SUCC 25MG EXT REL TAB PO SCH (09:01)
[2019-12-07] MEDS: BuPROPion XL 150 MG TABCR PO SCH (09:02)
[2019-12-07] MEDS: AMLODIPINE BESYLATE 5 MG TAB PO SCH (09:16)
--- NOTE | 2019-12-07 13:53 | Hospitalist Progress Note ---
Date of Service December 07, 2019 Assessment & Plan (1) Weakness: Per previous hospitalist Dr. Nestor Resendiz's notes: Urinary tract infection likely as Metabolic Encephalopathy from urinary tract infection -She was transferred from [facility] with extreme weakness and possible UTI, and was started on IV ceftriaxone -initially urine analysis did not reveal bacteria, but urine culture growing gram negative bacilli and this as speciated as pansensitive Klebsiella in the urine by 12/06/2019 -continue IV ceftriaxone as 2 grams daily, send blood culture on 12/06/2019 to rule out bacteremia -assessment of the leg by admitting physician "Right lower extremity looked reddish with edema and increasing warmth" -however assessment by day time hospitalist does not support cellulitis on this exam on 12/05/2019 12/07/2019 Continue IV ceftriaxone Follow-up blood cultures Also on Wellbutrin and Zoloft for depression Noted to be tired, drowsy after these were started Hold for now, consult psychiatry service (2) Fatigue: weakness/fatigue may be a combination of urinary tract infection and psych medication related? Patient with #1 (3) HTN (hypertension): Per previous hospitalist Dr. Nestor Resendiz's notes: -History of hypertension and is on multiple medications, as per patient's sister, the blood pressure can be high in the past -admission blood pressure noted to be very high in the emergency room with systolic 220 and diastolic 97 -was given labetalol initially -continue home dose medication of losartan 100 mg daily, amlodipine 5 mg daily, metoprolol succinate 75 mg daily, has prn IV hydralazine, will increase amlodipine to 10 mg daily starting on 12/07/2019 -on medical telemetry for closer monitoring of blood pressures --Improving, monitor Hypokalemia Resolved Hypomagnesemia Resolved (4) DM II (diabetes mellitus, type II), controlled: - hold metformin - sliding scale insulin coverage as needed (5) Depression: Management per #1 (6) CVA (cerebral vascular accident): -history of stroke in the past -CT scan of the head on admission no hemorrhage, mass effect, or evidence of acute territorial ischemia by CT criteria. (7) Subarachnoid hemorrhage: -History of subarachnoid hemorrhage in the past -CT scan of the head on admission showed aneurysm coils and ventriculostomy catheter remain intact without any new changes DVT prophylaxis SCDs only in light of history of subarachnoid hemorrhage CODE STATUS DNR/DNI sister ([phone]) makes the medical decisions Admission and Anticipated Discharge Date Admission Date: December 05, 2019 Subjective Follow-up for altered mental status, UTI Seen with family at the bedside Awake, alert, but appears somewhat weak Reports that she continues to feel tired Per family patient is more alert and awake, but still appears fatigued Appetite slowly improving Denies chest pain, shortness of breath, palpitations, dizziness No abdominal pain, nausea vomiting or dysuria Reports symptoms of depression No other symptoms Review of Systems Review of Systems: All systems reviewed & are unremarkable except as noted in HPI & below Physical Exam Physical Exam: General- oriented x 3, not in distress, speaks in sentences with no effort or accessory muscle use Head- atraumatic Eyes- PERRL, EOMI, anicteric ENT- oropharynx clear Neck- supple, no JVD, no adenopathy, no thyromegaly; carotids +2/2, no bruits appreciated Lungs- clear to auscultation bilaterally, no rales/wheezes Heart- normal rate, regular rhythm; no murmur, no gallop, no rub appreciated Abdomen- normal bowel sounds, nondistended, soft, nontender, no masses or hepatosplenomegaly Extremities- no pretibial edema, no calf tenderness; peripheral pulses intact Neuro- alert, oriented x 3; CN 2-12 grossly intact; motor 5/5 bilaterally ;sensation 100% on all extremities; no other gross focal neurologic deficits Skin- warm & dry Psych-calm, cooperative, reports symptoms of depression Results & Data ([facility]) Vital Signs (Past 12 Hours) Vital Signs Temp Pulse Pulse Pulse Resp BP Pulse Ox 12/07/19 10:29 67 12/07/19 07:00 37.3 C 72 20 164/76 H 91 12/07/19 05:05 36.6 C 75 18 160/72 H 92 12/07/19 02:16 36.5 C 71 20 178/74 H 91 Laboratory Results Laboratory Results - last 24 hr 12/07/19 12/07/19 12/07/19 07:42 11:38 13:47 Sodium 135 L Potassium 3.7 D Chloride 104 Carbon Dioxide 25 Anion Gap 6.0 BUN 21 H Creatinine 0.81 Est Cr Clr Drug Dosing 64.2 Est GFR ( Amer) 80.1 Est GFR (Non-Af Amer) 69.1 BUN/Creatinine Ratio 25.7 H Glucose 194 H POC Glucose 140 H 207 H Calcium 9.8 Magnesium 2.2 12/07/19 12/07/19 16:46 20:15 Sodium Potassium Chloride Carbon Dioxide Anion Gap BUN Creatinine Est Cr Clr Drug Dosing Est GFR ( Amer) Est GFR (Non-Af Amer) BUN/Creatinine Ratio Glucose POC Glucose 165 H 196 H Calcium Magnesium (1) Fatigue Fatigue type: unspecified Qualified Code(s): R53.83 - Other fatigue (2) HTN (hypertension) Hypertension type: unspecified Qualified Code(s): I10 - Essential (primary) h ypertension
[2019-12-07 14:36] LABS: BUN Creatinine Ratio 25.7 (10-20); Calcium 9.8 mg/dl (8.5-10.1); Creatinine Clr Calc Pharmacy 64.2 ml/min; Est GFR (African American) 80.1; Est GFR (Non-African American) 69.1; Magnesium 2.2 mg/dl (1.8-2.4)
[2019-12-07 14:41] LABS: Potassium 3.7 mmol/L (3.5-5.1)
[2019-12-07] MEDS: cefTRIAXone SODIUM 2,000 MG in DEXTROSE 5% 50 ML IV SCH (16:04)
[2019-12-08] MEDS: HydrALAZINE HCL 20 MG/ML VIAL IV PRN (04:54)
[2019-12-08] MEDS: LOSARTAN POTASSIUM 50 MG TAB PO SCH (09:07)
[2019-12-08] MEDS: INSULIN ASPART 100 UNITS/ML 3 ML PEN SC SCH ×4 (09:07→21:23)
[2019-12-08] MEDS: AMLODIPINE BESYLATE 5 MG TAB PO SCH (09:08)
[2019-12-08] MEDS: ASPIRIN 81 MG ECTAB PO SCH (09:08)
[2019-12-08] MEDS: METOPROLOL SUCC 25MG EXT REL TAB PO SCH (09:08)
[2019-12-08] MEDS: METOPROLOL SUCC 50MG EXT REL TAB PO SCH (09:08)
[2019-12-08] MEDS: ATORVASTATIN 10 MG TAB PO SCH (09:08)
--- NOTE | 2019-12-08 10:50 | Psychiatric Consultation ---
Date of Consultation December 08, 2019 Impression / Recommendations Impression 79 yo female with hx of depression and dementia, s/p CVA and aneurysm clipping presents with change in MS while on Wellbutrin XL 150 mg and Zoloft 150 mg daily. There is some family history of seizure and current cause of lethargy/weakness is likely infection. Plan: would suggest restarting Zoloft 50 mg and dose at bedtime and slowly retitrate (25 mg every 3-5 days or 50 mg weekly) as physical condition improves. Note: dose of Zoloft 100 mg often adequate in geriatric population, particularly as no co-morbid OCD. Given age and neurologic history I'd advise against use of Wellbutrin in this patient. If there are ongoing concerns about periods of decreased responsiveness would recommend EEG to rule out subclinical seizure activity with postictal state. If Zoloft ineffective as monotherapy, would sugge st Lexapro 5 and titrate as next best option. Risk Factors Assessment Do You Have Access To A Gun?: No Psych History Identifying Data 79 yo female admit with UTI from [facility]. Consult is by Dr. Oconnell for lethargy and depression. Chief Complaint "My meds help, not sure why I'm so tired". History of Present Illness Patient moved back to the area from [place] in Sep 2018, needs PT/OT, hx of dementia. Liaison spoke with sister and I believe niece. Has been on combo of Wellbutrin and Zoloft for some time. Both were held on admission here due to presumed metabolic encephalopathy. In weeks leading up to confinement she was weak, tired, wanting to just take lunch in bed yet denies sleep issues, change in appetite or anxiety. She does appear tired today, opening eyes to comment on her meds, expresses desire to remain on current meds rather than try something new. Past Psychiatric History Previous Psych History: depression Outpatient Services: meds per medical provider Previous Psych Admissions: none known Do You Have Access To A Gun?: No History of Previous Suicide Attempt: No Past Medication Trials: Serzone in 2012 Allergies Allergy/AdvReac Type Severity Reaction Status Date / Time Sulfa (Sulfonamide AdvReac Unknown Unverified 12/04/19 15:29 Antibiotics) Home Medications Home Medications Medication Instructions Recorded Confirmed Type acetaminophen 1,000 mg PO BID PRN MDD 3GM APAP 10/21/18 12/04/19 History IN 24 HRS aspirin [Aspirin Low Dose] 81 mg PO QAM 10/21/18 12/04/19 History atorvastatin 10 mg PO QAM 10/21/18 12/04/19 History bupropion HCl [Wellbutrin XL] 150 mg PO QAM 10/21/18 12/04/19 History losartan 100 mg PO QAM 10/21/18 12/04/19 History metformin 1,000 mg PO QAM 10/21/18 12/04/19 History metoprolol succinate 50 mg PO QAM 10/21/18 12/04/19 History sertraline 150 mg PO QAM 10/21/18 12/04/19 History metoprolol succinate 25 mg PO QAM 01/07/19 12/04/19 History amlodipine 5 mg PO QAM 08/31/19 12/04/19 History Family History denies family psych hx, father had a seizure disorder, remote suicide attempt by a younger sister Substance Abuse History denied Personal History Highest Grade Completed: College 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) Number Of Children: none Beliefs That Will Affect Care: None History of Legal Problems: none Patient History Medical History Breast CA (Chronic) CVA (cerebral vascular accident) (Chronic) Depression (Chronic) DM II (diabetes mellitus, type II), controlled (Chronic) HLD (hyperlipidemia) (Chronic) HTN (hypertension) (Chronic) Subarachnoid hemorrhage (Resolved) Surgical History No pertinent past surgical history Family History Other Family history non-contributory Social History Preferred Language: Thai Communication Ability: Unable Cloth Coverer Required: No Beliefs That Will Affect Care: None marital status: / Current Living Situation: Personal Care Facility Current Living Situation Comment: resides at [facility] current occupational status: retired Other Information That Helps Us Care for You: No Feels Safe at Home: Yes Safety Concerns: Feels Safe At This Time Smoking Status: Former smoker Do You Dip or Chew Tobacco: No ; Second Hand Exposure: No ; Tobacco Cessation Education Requested by Patient: No Hx Alcohol Use: No Hx Substance Use: No Physical Exam Psychiatric: very tired Eye Contact: + poor eye contact Motor Behavior: + tremor non-spontaneous but answers short questions appropriately Affect: + blunted affect "I'm fine thankyou" Thought Process: + concrete thought process Thought Content: not paranoid Suicidal Thoughts: denies suicidal thoughts Homicidal Thoughts: denies homicidal thoughts Hallucinations: no auditory hallucinations and no visual hallucinations Cognition: + attention not intact Insight: + limited insight Judgement: + limited judgement Vital Signs (Past 24 Hours): Last Vital Signs Temp 36.6 C 12/08/19 07:51 Pulse 69 12/08/19 07:51 Resp 18 12/08/19 07:51 BP 160/74 H 12/08/19 07:51 Pulse Ox 92 12/08/19 07:51 Review of Systems Unobtainable due to cognitive status Results & Data ([facility]) Medications Administered Acetaminophen (Tylenol) 1,000 mg PO BID PRN PRN Reason: Pain Stop: 01/03/20 18:49 Last Admin: 12/07/19 18:51 Dose: 1,000 mg Documented by: [id number] Amlodipine Besylate (Norvasc) 10 mg PO [facility] Stop: 01/06/20 08:59 Last Admin: 12/08/19 09:08 Dose: 10 mg Documented by: [id number] Admin: 12/07/19 09:16 Dose: 10 mg Documented by: [id number] Aspirin (Ecotrin Ectab) 81 mg PO [facility] Stop: 01/04/20 08:59 Last Admin: 12/08/19 09:08 Dose: 81 mg Documented by: [id number] Admin: 12/07/19 09:00 Dose: 81 mg Documented by: [id number] Admin: 12/06/19 10:21 Dose: 81 mg Documented by: [id number] Admin: 12/05/19 09:57 Dose: 81 mg Documented by: [id number] Atorvastatin Calcium (Lipitor) 10 mg PO [facility] Stop: 01/04/20 08:59 Last Admin: 12/08/19 09:08 Dose: 10 mg Documented by: [id number] Admin: 12/07/19 09:01 Dose: 10 mg Documented by: [id number] Admin: 12/06/19 10:23 Dose: 10 mg Documented by: [id number] Admin: 12/05/19 09:56 Dose: 10 mg Documented by: [id number] Hydralazine HCl (Hydralazine Hcl) 5 mg IV Q6H PRN PRN Reason: sbp greater than 160 Stop: 01/03/20 19:14 Last Admin: 12/08/19 04:54 Dose: 5 mg Documented by: [id number] Admin: 12/07/19 00:48 Dose: 5 mg Documented by: [id number] Admin: 12/06/19 15:57 Dose: 5 mg Documented by: [id number] Admin: 12/05/19 23:57 Dose: 5 mg Documented by: [id number] Admin: 12/05/19 18:10 Dose: 5 mg Documented by: [id number] Ceftriaxone Sodium 2,000 mg/ (Dextrose) 70 mls @ 100 mls/hr IV Q24H [facility]; Protocol Stop: 12/10/19 15:59 Last Infusion: 12/07/19 16:56 Dose: 100 mls/hr Documented by: [id number] Admin: 12/07/19 16:04 Dose: 100 mls/hr Documented by: [id number] Infusion: 12/06/19 16:43 Dose: 0 mls/hr Documented by: [id number] Admin: 12/06/19 15:57 Dose: 100 mls/hr Documented by: [id number] Infusion: 12/05/19 17:13 Dose: 0 mls/hr Documented by: [id number] Admin: 12/05/19 16:18 Dose: 100 mls/hr Documented by: [id number] Insulin Aspart (Novolog Flexpen) 0 units SC ACHS [facility] Stop: 01/03/20 20:59 Last Admin: 12/08/19 09:07 Dose: 1 units Documented by: [id number] Cosigned by: [id number] Admin: 12/07/19 20:38 Dose: 3 units Documented by: [id number] Cosigned by: [id number] Admin: 12/07/19 17:21 Dose: 2 units Documented by: [id number] Cosigned by: [id number] Admin: 12/07/19 12:53 Dose: 5 units Documented by: [id number] Cosigned by: [id number] Admin: 12/07/19 09:00 Dose: Not Given Documented by: [id number] Cosigned by: [id number] Admin: 12/06/19 20:16 Dose: 2 units Documented by: [id number] Cosigned by: [id number] Admin: 12/06/19 17:32 Dose: Not Given Documented by: [id number] Cosigned by: [id number] Admin: 12/06/19 12:53 Dose: 5 units Documented by: [id number] Cosigned by: [id number] Admin: 12/06/19 10:27 Dose: 2 units Documented by: [id number] Cosigned by: [id number] Admin: 12/05/19 20:37 Dose: 5 units Documented by: [id number] Cosigned by: [id number] Admin: 12/05/19 17:32 Dose: 4 units Documented by: [id number] Cosigned by: [id number] Admin: 12/05/19 13:21 Dose: 2 units Documented by: [id number] Cosigned by: [id number] Admin: 12/05/19 09:57 Dose: 2 units Documented by: [id number] Cosigned by: [id number] Admin: 12/04/19 20:07 Dose: 3 units Documented by: [id number] Cosigned by: [id number] Losartan Potassium (Cozaar) 100 mg PO [facility] Stop: 01/04/20 08:59 Last Admin: 12/08/19 09:07 Dose: 100 mg Documented by: [id number] Admin: 12/07/19 09:01 Dose: 100 mg Documented by: [id number] Admin: 12/06/19 10:21 Dose: 100 mg Documented by: [id number] Admin: 12/05/19 07:42 Dose: 100 mg Documented by: [id number] Metoprolol Su[facility] ([facility] Xl) [facility] Stop: 01/04/20 08:59 Last Admin: 12/08/19 09:08 Dose: 25 mg Documented by: [id number] Admin: 12/07/19 09:01 Dose: 25 mg Documented by: [id number] Admin: 12/06/19 10:23 Dose: 25 mg Documented by: [id number] Admin: 12/05/19 07:44 Dose: 25 mg Documented by: [id number] Metoprolol Succinate ([facility]rol Xl) [facility] Stop: 01/04/20 08:59 Last Admin: 12/08/19 09:08 Dose: 50 mg Documented by: [id number] Admin: 12/07/19 09:01 Dose: 50 mg Documented by: [id number] Admin: 12/06/19 10:21 Dose: 50 mg Documented by: [id number] Admin: 12/05/19 07:42 Dose: 50 mg Documented by: [id number] Coding Level of Care Code 57301 [facility] Intl Hosp Care Lvl 2
[2019-12-08] MEDS: INSULIN GLARGINE SOLOSTAR 100 UNITS/ML 3 ML PEN SC SCH (15:53)
[2019-12-08] MEDS: cefTRIAXone SODIUM 2,000 MG in DEXTROSE 5% 50 ML IV SCH (15:55)
--- NOTE | 2019-12-08 19:24 | Hospitalist Progress Note ---
Date of Service December 08, 2019 Assessment & Plan (1) Weakness: Per previous hospitalist Dr. Nestor Resendiz's notes: Urinary tract infection likely as Metabolic Encephalopathy from urinary tract infection -She was transferred from [facility] with extreme weakness and possible UTI, and was started on IV ceftriaxone -initially urine analysis did not reveal bacteria, but urine culture growing gram negative bacilli and this as speciated as pansensitive Klebsiella in the urine by 12/06/2019 -continue IV ceftriaxone as 2 grams daily, send blood culture on 12/06/2019 to rule out bacteremia -assessment of the leg by admitting physician "Right lower extremity looked reddish with edema and increasing warmth" -however assessment by day time hospitalist does not support cellulitis on this exam on 12/05/2019 12/08/2019 Afebrile Urine culture: Positive for Klebsiella Blood cultures from 12/06/2019: Negative Continue IV ceftriaxone Also on Wellbutrin and Zoloft for depression Noted to be tired, drowsy after these were started Psychiatry service consulted-recommended to reduce Zoloft to 50 mg daily, discontinue Wellbutrin Patient still having profound weakness, generalized will consult neurology (2) Fatigue: weakness/fatigue may be a combination of urinary tract infection and psych medication related? Patient with #1 (3) HTN (hypertension): Per previous hospitalist Dr. Nestor Resendiz's notes: -History of hypertension and is on multiple medications, as per patient's sister, the blood pressure can be high in the past -admission blood pressure noted to be very high in the emergency room with systolic 220 and diastolic 97 -was given labetalol initially -continue home dose medication of losartan 100 mg daily, amlodipine 5 mg daily, metoprolol succinate 75 mg daily, has prn IV hydralazine, will increase amlodipine to 10 mg daily starting on 12/07/2019 --Blood pressure still not at goal Start hydralazine 25 mg twice daily Monitor Hypokalemia Resolved Hypomagnesemia Resolved (4) DM II (diabetes mellitus, type II), controlled: - hold metformin - sliding scale insulin coverage as needed (5) Depression: Management per #1 (6) CVA (cerebral vascular accident): -history of stroke in the past -CT scan of the head on admission no hemorrhage, mass effect, or evidence of acute territorial ischemia by CT criteria. (7) Subarachnoid hemorrhage: -History of subarachnoid hemorrhage in the past -CT scan of the head on admission showed aneurysm coils and ventriculostomy catheter remain intact without any new changes -We will consult neurology for recommendations regarding generalized weakness DVT prophylaxis SCDs only in light of history of subarachnoid hemorrhage CODE STATUS DNR/DNI sister ([phone]) makes the medical decisions Plan of care discussed with patient in detail All questions were answered She is understanding, agreeable, comfortable plan of Admission and Anticipated Discharge Date Admission Date: December 05, 2019 Subjective Follow-up for UTI, weakness Seen resting in bed, awake and alert States she feels slightly improved compared to yesterday States that she is more awake today, still has weakness but slightly better compared to yesterday Denies shortness of breath, chest pain, abdominal pain, nausea vomiting, dysuria, diarrhea No other symptoms Review of Systems Review of Systems: All systems reviewed & are unremarkable except as noted in HPI & below Physical Exam Physical Exam: General- oriented x 3, not in distress, speaks in sentences with no effort or accessory muscle use Eyes- anicteric Neck- no JVD Lungs- clear breath sounds bilaterally, no rales/wheezes Heart- normal rate, regular rhythm; no murmurs Abdomen- normal bowel sounds, nondistended, soft, nontender Extremities- no pretibial edema, no calf tenderness Neuro- alert, oriented x 3; motor strength 3-4 over 5 on all extremities Skin- warm & dry Results & Data ([facility]) Vital Signs (Past 12 Hours) Vital Signs Temp Pulse Pulse Resp BP Pulse Ox 12/08/19 19:12 37.2 C 72 16 92 12/08/19 16:02 37.0 C 73 61 20 152/83 H 96 12/08/19 11:53 36.8 C 68 18 164/77 H 91 12/08/19 07:51 36.6 C 69 18 160/74 H 92 12/08/19 07:30 64 Laboratory Results Laboratory Results - last 24 hr 12/07/19 12/08/19 12/08/19 20:15 07:34 12:14 POC Glucose 196 H 130 H 184 H 12/08/19 16:49 POC Glucose 152 H (1) Fatigue Fatigue type: unspecified Qualified Code(s): R53.83 - Other fatigue (2) HTN (hypertension) Hypertension type: unspecified Qualified Code(s): I10 - Essential (primary) hypertension
[2019-12-08] MEDS ORDERED: MAGNESIUM HYDROXIDE SUSP 30 ML UDC PO PRN (20:29)
[2019-12-08] MEDS: SERTRALINE HCL 50 MG TABLET PO SCH (21:22)
[2019-12-09] MEDS: HydrALAZINE HCL 20 MG/ML VIAL IV PRN (01:02)
[2019-12-09] MEDS: INSULIN ASPART 100 UNITS/ML 3 ML PEN SC SCH ×4 (09:20→21:50)
[2019-12-09] MEDS: INSULIN GLARGINE SOLOSTAR 100 UNITS/ML 3 ML PEN SC SCH (09:22)
[2019-12-09] MEDS: METOPROLOL SUCC 25MG EXT REL TAB PO SCH (09:23)
[2019-12-09] MEDS: METOPROLOL SUCC 50MG EXT REL TAB PO SCH (09:23)
[2019-12-09] MEDS: ATORVASTATIN 10 MG TAB PO SCH (09:23)
[2019-12-09] MEDS: ASPIRIN 81 MG ECTAB PO SCH (09:23)
[2019-12-09] MEDS: AMLODIPINE BESYLATE 5 MG TAB PO SCH (09:23)
[2019-12-09] MEDS: LOSARTAN POTASSIUM 50 MG TAB PO SCH (09:23)
[2019-12-09] MEDS: cephALEXin 500 MG CAP PO SCH (16:08)
--- NOTE | 2019-12-09 16:42 | Neurology Consultation ---
Date of Consultation December 09, 2019 Assessment & Plan (1) Weakness: 1. very lethargic and weak- need family input for baseline 2. correct lyte abnormalities 3. check B12, folate, thiamine 4. if not eating well may need thiamine started 5. treat any infectious processes 6. 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, a CAT scan that does not show evidence for shunt failure but 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 and in the setting of a recent apparent urinary tract infection and multiple electrolyte disturbances I do not know what this woman's baseline is in terms of neurologic function and we really need input from the family to establish how much of a change this is f rom her status and what everyone considers to be a "baseline" prior to the onset of the suspected toxic or metabolic encephalopathy/delirium I will be checking back periodically through the weekend to see if she begins to emerge from the current state and while there are elements that suggest Parkinson's or at least a parkinsonism, I am not at all optimistic that treating her with dopamine is going to produce much of a difference particularly in light of the presence of significant underlying structural brain disease specifically leukoencephalopathy Maged Proctor MD History of Present Illness Reason for Consultation: generalize weakness Requesting Physician: Isai Reyes MD Attending Physician: Isai Oconnell MD History of Present Illness Colette is a 79 year old obese female with PMH HTN, HLD, DM 2, history of CVA, SAH, depression and history of breast cancer sent from [facility] this afternoon with increasing weakness and inability to pass urine. She is extremely weak and lethargic. Given the complaints of extreme weakness and tiredness and with high blood pressure. She is easily aroused and follows commands. denies pain. Allergies Allergy/AdvReac Type Severity Reaction Status Date / Time Sulfa (Sulfonamide AdvReac Unknown Unverified 12/04/19 15:29 Antibiotics) Home Medications Home Medications Medication Instructions Recorded Confirmed Type acetaminophen 1,000 mg PO BID PRN MDD 3GM APAP 10/21/18 12/04/19 History IN 24 HRS aspirin [Aspirin Low Dose] 81 mg PO QAM 10/21/18 12/04/19 History atorvastatin 10 mg PO QAM 10/21/18 12/04/19 History bupropion HCl [Wellbutrin XL] 150 mg PO QAM 10/21/18 12/04/19 History losartan 100 mg PO QAM 10/21/18 12/04/19 History metformin 1,000 mg PO QAM 10/21/18 12/04/19 History metoprolol succinate 50 mg PO QAM 10/21/18 12/04/19 History sertraline 150 mg PO QAM 10/21/18 12/04/19 History metoprolol succinate 25 mg PO QAM 01/07/19 12/04/19 History amlodipine 5 mg PO QAM 08/31/19 12/04/19 History Patient History Medical History Breast CA (Chronic) CVA (cerebral vascular accident) (Chronic) Depression (Chronic) DM II (diabetes mellitus, type II), controlled (Chronic) HLD (hyperlipidemia) (Chronic) HTN (hypertension) (Chronic) Subarachnoid hemorrhage (Resolved) Surgical History No pertinent past surgical history Family History Other Family history non-contributory Social History Preferred Language: Scottish Communication Ability: Unable Title I Instructional Assistant Required: No Beliefs That Will Affect Care: None marital status: / Current Living Situation: Personal Care Facility Current Living Situation Comment: resides at [facility] current occupational status: retired Other Information That Helps Us Care for You: No Feels Safe at Home: Yes Safety Concerns: Feels Safe At This Time Smoking Status: Former smoker Do You Dip or Chew Tobacco: No ; Second Hand Exposure: No ; Tobacco Cessation Education Requested by Patient: No Hx Alcohol Use: No Hx Substance Use: No Physical Exam Physical Exam: Physical Exam: Constitutional: appearance over nourished Cardiovascular: normal S-1 and S-2 and regular rate and rhythm Respiratory: course breath sounds Musculoskeletal: no peripheral edema and good distal pulses Skin: no stigmata of neurocutaneous disease noted and normal and intact Eyes: matted shut reactive NEUROLOGIC EXAMINATION: Mental status: Alert and interactive she thinks she is in [place] Oriented to person Speech fluent with no evidence of aphasia Cranial Nerves facial symmetry Reflexes: Deep tendon reflexes were symmetrical and graded 2/5. down going toes, very rigid and +cogwheeling UE Sensory: to light touch Gait/Stance: Posture lying in bed Strength: hand desolderer biceps triceps 4+/5 bilaterally, hold legs against gravity when lifted, Results & Data Vital Signs (Past 12 Hours) Vital Signs Temp Pulse Pulse Resp BP Pulse Ox 12/09/19 15:50 36.1 C L 83 18 168/80 H 95 12/09/19 11:48 36.9 C 65 20 161/78 H 94 12/09/19 07:34 71 12/09/19 07:18 37.1 C 68 20 170/84 H 92 12/09/19 04:50 169/75 H Laboratory Results Abnormal lab results 12/08/19 12/08/19 12/09/19 Range/Units 16:49 20:30 07:40 POC Glucose 152 H 206 H 155 H (70-99) mg/dl 12/09/19 12/09/19 Range/Units 11:27 16:37 POC Glucose 200 H 139 H (70-99) mg/dl Diagnostic Findings CT head-There is no hemorrhage, mass effect, or evidence of acute territorial ischemia by CT criteria. Aneurysm coils and ventriculostomy catheter as above. Ventricular caliber is unchanged from previous. CXR-Stable cardiomegaly. A few bibasilar linear densities favor subsegmental atelectasis. (1) HTN (hypertension) Hypertension type: unspecified Qualified Code(s): I10 - Essential (primary) hypertension
[2019-12-09] MEDS: HydrALAZINE TAB 50 MG TAB PO SCH ×2 (17:51→21:50)
--- NOTE | 2019-12-09 20:33 | Hospitalist Progress Note ---
Date of Service December 09, 2019 Assessment & Plan (1) Weakness: Per previous hospitalist Dr. Nestor Resendiz's notes: Urinary tract infection likely as Metabolic Encephalopathy from urinary tract infection -She was transferred from [facility] with extreme weakness and possible UTI, and was started on IV ceftriaxone -initially urine analysis did not reveal bacteria, but urine culture growing gram negative bacilli and this as speciated as pansensitive Klebsiella in the urine by 12/06/2019 -continue IV ceftriaxone as 2 grams daily, send blood culture on 12/06/2019 to rule out bacteremia -assessment of the leg by admitting physician "Right lower extremity looked reddish with edema and increasing warmth" -however assessment by day time hospitalist does not support cellulitis on this exam on 12/05/2019 12/09/2019 Afebrile Urine culture: Positive for Klebsiella Blood cultures from 12/06/2019: Negative Given IV ceftriaxone, x5 days, decision to cephalexin p.o. Also on Wellbutrin and Zoloft for depression Noted to be tired, drowsy after these were started Psychiatry service consulted-recommended to reduce Zoloft to 50 mg daily, discontinue Wellbutrin Patient still having profound weakness, generalized Neurology consulted, awaiting further recommendations (2) Fatigue: weakness/fatigue may be a combination of urinary tract infection and psych medication related? Patient with #1 (3) HTN (hypertension): Per previous hospitalist Dr. Nestor Resendiz's notes: -History of hypertension and is on multiple medications, as per patient's sister, the blood pressure can be high in the past -admission blood pressure noted to be very high in the emergency room with systolic 220 and diastolic 97 -was given labetalol initially -continue home dose medication of losartan 100 mg daily, amlodipine 5 mg daily, metoprolol succinate 75 mg daily, has prn IV hydralazine, will increase amlodipine to 10 mg daily starting on 12/07/2019 --Blood pressure still not at goal Crease hydralazine to 50 mg p.o. 3 times daily Monitor closely Hypokalemia Resolved Hypomagnesemia Resolved (4) DM II (diabetes mellitus, type II), controlled: - hold metformin - sliding scale insulin coverage as needed (5) Depression: Management per #1 (6) CVA (cerebral vascular accident): -history of stroke in the past -CT scan of the head on admission no hemorrhage, mass effect, or evidence of acute territorial ischemia by CT criteria. (7) Subarachnoid hemorrhage: -History of subarachnoid hemorrhage in the past -CT scan of the head on admission showed aneurysm coils and ventriculostomy catheter remain intact without any new changes -We will consult neurology for recommendations regarding generalized weakness DVT prophylaxis SCDs only in light of history of subarachnoid hemorrhage CODE STATUS DNR/DNI sister ([phone]) makes the medical decisions Plan of care discussed with patient's sister in detail and at length All questions were answered She is understanding, agreeable, comfortable plan of Admission and Anticipated Discharge Date Admission Date: December 05, 2019 Subjective Follow-up for encephalopathy, UTI Seen with patient's Sister Angeline at the bedside Patient was having dinner, drinking milk Mostly drowsy today as per patient's sister After having dinner the patient was very tired, drowsy Appetite improving per patient sister as well No signs of shortness of breath, pain Not able to participate to physical or Occupational Therapy secondary to drowsiness, fatigue No other symptoms noted Review of Systems Review of Systems: All systems reviewed & are unremarkable except as noted in HPI & below Physical Exam Physical Exam: General-drowsy, but not in distress, breathing with no effort or accessory muscle use Eyes- anicteric Neck- no JVD Lungs- clear breath sounds bilaterally, crackles, no wheezing, no rhonchi bilaterally Heart- normal rate, regular rhythm; no murmurs Abdomen- normal bowel sounds, nondistended, soft, nontender Extremities- no pretibial edema, no calf tenderness Neuro-drowsy, full neurologic exam difficult to perform Skin- warm & dry Results & Data ([facility]) Vital Signs (Past 12 Hours) Vital Signs Temp Pulse Pulse Resp BP Pulse Ox 12/09/19 19:12 36.7 C 67 18 159/75 H 95 12/09/19 16:35 62 12/09/19 15:50 36.1 C L 83 18 168/80 H 95 12/09/19 11:48 36.9 C 65 20 161/78 H 94 Laboratory Results Laboratory Results - last 24 hr 12/08/19 12/09/19 12/09/19 20:30 07:40 11:27 POC Glucose 206 H 155 H 200 H 12/09/19 12/09/19 16:37 20:08 POC Glucose 139 H 184 H (1) Fatigue Fatigue type: unspecified Qualified Code(s): R53.83 - Other fatigue (2) HTN (hypertension) Hypertension type: unspecified Qualified Code(s): I10 - Essential (primary) hypertension
[2019-12-09] MEDS: SERTRALINE HCL 50 MG TABLET PO SCH (21:50)
[2019-12-10 07:41] LABS: Basophils # (auto) 0.01 K/uL (0-0.2); Basophils % (auto) 0.1 %; Eosinophils # (auto) 0.29 K/uL (0-0.5); Eosinophils % (auto) 3.5 %; Hematocrit (blood only) 40.3 % (37-47); Hemoglobin 13.5 g/dL (12.0-16.0); Immature Granulocytes # (auto) 0.01 K/uL (0.00-0.02); Immature Granulocytes % (auto) 0.1 %; Lymphocytes # (auto) 0.84 K/uL (1.2-3.4); Lymphocytes % (auto) 10.2 %; Mean Corpuscular Hemoglobin 30.8 pg (25-34); Mean Corpuscular Hgb Conc 33.5 g/dL (32-36); Mean Corpuscular Volume 91.8 fL (80-100); Mean Platelet Volume 9.2 fL (7.4-10.4); Monocytes # (auto) 0.92 K/uL (0.11-0.59); Monocytes % (auto) 11.2 %; Neutrophils # (auto) 6.17 K/uL (1.4-6.5); Neutrophils % (auto) 74.9 %; Platelet Count 234 K/uL (130-400); RDW Coefficient of Variation 14.4 % (11.5-14.5); RDW Standard Deviation 48.8 fL (36.4-46.3); Red Blood Count 4.39 M/uL (4.2-5.4); White Blood Count 8.24 K/uL (4.8-10.8)
[2019-12-10] MEDS: INSULIN ASPART 100 UNITS/ML 3 ML PEN SC SCH ×4 (08:18→20:43)
[2019-12-10] MEDS: INSULIN GLARGINE SOLOSTAR 100 UNITS/ML 3 ML PEN SC SCH (08:19)
[2019-12-10] MEDS: AMLODIPINE BESYLATE 5 MG TAB PO SCH (08:19)
[2019-12-10] MEDS: ASPIRIN 81 MG ECTAB PO SCH (08:19)
[2019-12-10] MEDS: METOPROLOL SUCC 50MG EXT REL TAB PO SCH (08:19)
[2019-12-10] MEDS: cephALEXin 500 MG CAP PO SCH ×2 (08:19→20:40)
[2019-12-10] MEDS: HydrALAZINE TAB 50 MG TAB PO SCH ×3 (08:19→20:39)
[2019-12-10] MEDS: LOSARTAN POTASSIUM 50 MG TAB PO SCH (08:19)
[2019-12-10 08:31] LABS: BUN Creatinine Ratio 29.3 (10-20); Calcium 10.3 mg/dl (8.5-10.1); Creatinine Clr Calc Pharmacy 70.9 ml/min; Est GFR (African American) 89.3; Est GFR (Non-African American) 77.1; Magnesium 2.2 mg/dl (1.8-2.4); Potassium 3.8 mmol/L (3.5-5.1)
[2019-12-10] MEDS: METOPROLOL SUCC 25MG EXT REL TAB PO SCH (09:13)
[2019-12-10] MEDS: CARBIDOPA/LEVODOPA 25/100MG TAB PO SCH ×2 (12:10→20:40)
--- NOTE | 2019-12-10 12:18 | Communication Note ---
Date of Service: December 10, 2019 I have seen Mrs. Jay today and now was able to interview a family member who outlines a slow progressive decline over the past year with gait disturbance requiring a walker but with acceleration of her overall decline since September correlating to some degree with treatment for multiple infections including cellulitis and now urinary tract infection She had a subarachnoid hemorrhage with shunt placed 10 years ago and this is not been followed closely by any neurosurgical group Her current status is clearly different than it was in September both in terms of her level of awareness and consciousness and her overall degree of motor control 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 and is likely significantly cognitively impaired but it is difficult to assess this due to her extreme bradykinesia and rigidity and diminished ability to speak While I suspect this is a delirium superimposed upon a significant charito koencephalopathy I really cannot exclude a true underlying dopamine responsive Parkinson's syndrome and have recommended to her primary care group that a trial of Sinemet be initiated even though I doubt that this is going to do much We will start with a half of a 25/100 tablet twice a day for 2 days then move up to half a tablet 3 times a day and based on her response may push it to a full tablet 3-4 times a day I am going order an EEG to be done on Thursday to be certain that some of her lethargy and unresponsiveness is not due to a nonconvulsive seizure pattern Maged Proctor MD
[2019-12-10] MEDS: SERTRALINE HCL 50 MG TABLET PO SCH (20:39)
--- NOTE | 2019-12-10 21:42 | Hospitalist Progress Note ---
Date of Service Delayed entry date of service noted below December 10, 2019 Assessment & Plan (1) Weakness: Per previous hospitalist Dr. Nestor Resendiz's notes: Urinary tract infection likely as Metabolic Encephalopathy from urinary tract infection -She was transferred from [facility] with extreme weakness and possible UTI, and was started on IV ceftriaxone -initially urine analysis did not reveal bacteria, but urine culture growing gram negative bacilli and this as speciated as pansensitive Klebsiella in the urine by 12/06/2019 -continue IV ceftriaxone as 2 grams daily, send blood culture on 12/06/2019 to rule out bacteremia -assessment of the leg by admitting physician "Right lower extremity looked reddish with edema and increasing warmth" -however assessment by day time hospitalist does not support cellulitis on this exam on 12/05/2019 12/10/2019 Afebrile Urine culture: Positive for Klebsiella Blood cultures from 12/06/2019: Negative Given IV ceftriaxone, x5 days, transitioned to cephalexin p.o. Also on Wellbutrin and Zoloft for depression Noted to be tired, drowsy after these were started Psychiatry service consulted-recommended to reduce Zoloft to 50 mg daily, discontinue Wellbutrin Patient still having profound weakness, generalized Neurology consulted--> recommend trial of Sinemet 25/100 1/2 tab x 2 days, then uptitrate slowly (2) Fatigue: weakness/fatigue may be a combination of urinary tract infection and psych medication related? Patient with #1 (3) HTN (hypertension): Per previous hospitalist Dr. Nestor Resendiz's notes: -History of hypertension and is on multiple medications, as per patient's sister, the blood pressure can be high in the past -admission blood pressure noted to be very high in the emergency room with systolic 220 and diastolic 97 -was given labetalol initially -continue home dose medication of losartan 100 mg daily, amlodipine 5 mg daily, metoprolol succinate 75 mg daily, has prn IV hydralazine, will increase amlodipine to 10 mg daily starting on 12/07/2019 --Blood pressure still not at goal increased hydralazine to 50 mg p.o. 3 times daily Monitor closely Hypokalemia Hypomagnesemia monitor and replace (4) DM II (diabetes mellitus, type II), controlled: - hold metformin - sliding scale insulin coverage as needed (5) Depression: Management per #1 (6) CVA (cerebral vascular accident): -history of stroke in the past -CT scan of the head on admission no hemorrhage, mass effect, or evidence of acute territorial ischemia by CT criteria. (7) Subarachnoid hemorrhage: -History of subarachnoid hemorrhage in the past -CT scan of the head on admission showed aneurysm coils and ventriculostomy catheter remain intact without any new changes DVT prophylaxis SCDs only in light of history of subarachnoid hemorrhage CODE STATUS DNR/DNI sister ([phone]) makes the medical decisions Admission and Anticipated Discharge Date Admission Date: December 05, 2019 Subjective Follow-up for weakness, lethargy Seen resting in bed, comfortable, drowsy Nods heads, answers single words to question Appears weak Able to have meals per staff assistance No other signs or symptoms noted Review of Systems Review of Systems: All systems reviewed & are unremarkable except as noted in HPI & below Physical Exam Physical Exam: General- drowsy, not in distress, breathing with no effort or accessory muscle use Eyes- anicteric Neck- no JVD Lungs- clear breath sounds BL Heart- normal rate, regular rhythm; no murmurs Abdomen- normal bowel sounds, nondistended, soft, nontender Extremities- no pretibial edema, no calf tenderness Neuro- drowsy unable to perform full neuro exam Skin- warm & dry Results & Data ([facility]) Vital Signs (Past 12 Hours) Vital Signs Temp Pulse Pulse Resp BP Pulse Ox 12/10/19 19:35 36.7 C 67 22 170/79 H 94 12/10/19 16:05 66 12/10/19 14:37 37.2 C 67 18 144/73 H 12/10/19 13:42 162/79 H 12/10/19 11:30 37.1 C 69 18 175/78 H 93 (1) Fatigue Fatigue type: unspecified Qualified Code(s): R53.83 - Other fatigue (2) HTN (hypertension) Hypertension type: unspecified Qualified Code(s): I10 - Essential (primary) hypertension
[2019-12-11 07:40] LABS: BUN Creatinine Ratio 36.3 (10-20); Calcium 9.7 mg/dl (8.5-10.1); Creatinine Clr Calc Pharmacy 72.8 ml/min; Est GFR (African American) 93.9; Magnesium 2.2 mg/dl (1.8-2.4); Potassium 3.4 mmol/L (3.5-5.1)
[2019-12-11] MEDS: HydrALAZINE TAB 50 MG TAB PO SCH ×4 (08:01→21:00)
[2019-12-11] MEDS: LOSARTAN POTASSIUM 50 MG TAB PO SCH (08:02)
[2019-12-11] MEDS: CARBIDOPA/LEVODOPA 25/100MG TAB PO SCH ×2 (08:02→21:00)
[2019-12-11] MEDS: ASPIRIN 81 MG ECTAB PO SCH (08:02)
[2019-12-11] MEDS: AMLODIPINE BESYLATE 5 MG TAB PO SCH (08:02)
[2019-12-11] MEDS: cephALEXin 500 MG CAP PO SCH ×2 (08:02→21:00)
[2019-12-11] MEDS: METOPROLOL SUCC 25MG EXT REL TAB PO SCH (08:03)
[2019-12-11] MEDS: METOPROLOL SUCC 50MG EXT REL TAB PO SCH (08:03)
[2019-12-11] MEDS: INSULIN ASPART 100 UNITS/ML 3 ML PEN SC SCH ×4 (08:08→21:01)
[2019-12-11] MEDS: INSULIN GLARGINE SOLOSTAR 100 UNITS/ML 3 ML PEN SC SCH (08:09)
--- NOTE | 2019-12-11 14:30 | Communication Note ---
Date of Service: December 11, 2019 Colette is a little more responsive today looks a little less rigid but not sure this was not going to happen anyway and she is only received up to three 1/2 doses of Sinemet 25/100 mg tablets since yesterday. 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 and imaging reveals no suggestion of shunt failure Bradykinetic rigid syndrome may be the final common pathway of quite a number of neurologic disorders among them vascular disease, drug-induced state, electrolyte disturbances, and non-Parkinson disease degenerative processes which are not going to be dopamine responsive and I doubt that she really has idiopathic Parkinson's but we have little else to offer her in this setting her woman who has had a progressive decline since September and a more insidious and still progressive decline in her overall gait and demeanor for 6 months at least We will see what happens when she reaches a dose of a half Sinemet 25/100 tablet 3 times a day and if she looks slightly better and is not more confused or agitated we will then push the drug higher to a full tablet 3 times a day Maged Proctor MD
[2019-12-11] MEDS ORDERED: POTASSIUM CHLORIDE 20 MEQ TABCR PO STA (16:49)
[2019-12-11] MEDS: SERTRALINE HCL 50 MG TABLET PO SCH (21:00)
[2019-12-12 07:51] LABS: BUN Creatinine Ratio 30.3 (10-20); Calcium 9.8 mg/dl (8.5-10.1); Creatinine Clr Calc Pharmacy 72.1 ml/min; Est GFR (African American) 92.3; Est GFR (Non-African American) 79.7; Potassium 3.6 mmol/L (3.5-5.1)
[2019-12-12] MEDS: INSULIN ASPART 100 UNITS/ML 3 ML PEN SC SCH ×4 (08:13→20:50)
[2019-12-12] MEDS: INSULIN GLARGINE SOLOSTAR 100 UNITS/ML 3 ML PEN SC SCH (08:14)
[2019-12-12] MEDS: HydrALAZINE TAB 50 MG TAB PO SCH ×4 (08:14→20:51)
[2019-12-12] MEDS: AMLODIPINE BESYLATE 5 MG TAB PO SCH (08:15)
[2019-12-12] MEDS: LOSARTAN POTASSIUM 50 MG TAB PO SCH (08:15)
[2019-12-12] MEDS: ASPIRIN 81 MG ECTAB PO SCH (08:15)
[2019-12-12] MEDS: cephALEXin 500 MG CAP PO SCH (08:15)
[2019-12-12] MEDS: CARBIDOPA/LEVODOPA 25/100MG TAB PO SCH ×3 (08:16→20:51)
[2019-12-12] MEDS: METOPROLOL SUCC 25MG EXT REL TAB PO SCH (08:16)
[2019-12-12] MEDS: METOPROLOL SUCC 50MG EXT REL TAB PO SCH (08:16)
[2019-12-12 09:41] LABS: Allen Test Pos (Pos); Base Excess ABG 2.7 mEq/L (-9-1.8); HCO3 ABG 26 mmol/L (19-24); PCO2 ABG 36 mmHg (35-46); PO2 ABG 61 mmHg (80-95); pH ABG 7.48 (7.35-7.45)
--- NOTE | 2019-12-12 09:47 | Hospitalist Progress Note ---
Date of Service delayed entry date of service 12/11/2019 December 12, 2019 Assessment & Plan (1) Weakness: Per previous hospitalist Dr. Nestor Resendiz's notes: Urinary tract infection likely as Metabolic Encephalopathy from urinary tract infection -She was transferred from [facility] with extreme weakness and possible UTI, and was started on IV ceftriaxone -initially urine analysis did not reveal bacteria, but urine culture growing gram negative bacilli and this as speciated as pansensitive Klebsiella in the urine by 12/06/2019 -continue IV ceftriaxone as 2 grams daily, send blood culture on 12/06/2019 to rule out bacteremia -assessment of the leg by admitting physician "Right lower extremity looked reddish with edema and increasing warmth" -however assessment by day time hospitalist does not support cellulitis on this exam on 12/05/2019 12/11/2019 Afebrile Urine culture: Positive for Klebsiella Blood cultures from 12/06/2019: Negative Given IV ceftriaxone, x5 days, transitioned to cephalexin p.o. Also on Wellbutrin and Zoloft for depression Noted to be tired, drowsy after these were started Psychiatry service consulted-recommended to reduce Zoloft to 50 mg daily, discontinue Wellbutrin Patient still having profound weakness, generalized Neurology consulted--> recommend trial of Sinemet 25/100 1/2 tab x 2 days, then uptitrate slowly seems to be improved today, continue Sinemet (2) Fatigue: weakness/fatigue may be a combination of urinary tract infection and psych medication related? Patient with #1 (3) HTN (hypertension): Per previous hospitalist Dr. Nestor Resendiz's notes: -History of hypertension and is on multiple medications, as per patient's sister, the blood pressure can be high in the past -admission blood pressure noted to be very high in the emergency room with systolic 220 and diastolic 97 -was given labetalol initially -continue home dose medication of losartan 100 mg daily, amlodipine 5 mg daily, metoprolol succinate 75 mg daily, has prn IV hydralazine, will increase amlodipine to 10 mg daily starting on 12/07/2019 --Blood pressure still not at goal increased hydralazine to 50 mg p.o. 4times daily Monitor closely Hypokalemia Hypomagnesemia monitor and replace (4) DM II (diabetes mellitus, type II), controlled: - hold metformin - sliding scale insulin coverage as needed (5) Depression: Management per #1 (6) CVA (cerebral vascular accident): -history of stroke in the past -CT scan of the head on admission no hemorrhage, mass effect, or evidence of acute territorial ischemia by CT criteria. (7) Subarachnoid hemorrhage: -History of subarachnoid hemorrhage in the past -CT scan of the head on admission showed aneurysm coils and ventriculostomy catheter remain intact without any new changes DVT prophylaxis SCDs only in light of history of subarachnoid hemorrhage CODE STATUS DNR/DNI sister ([phone]) makes the medical decisions Admission and Anticipated Discharge Date Admission Date: December 05, 2019 Subjective ff up for weakness, lethargy seen resting in bed, eyes mostly closed but answers all questions appropriately more conversant, able to follow more commands- lift her arms, news internship examiner's 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, lift her legs denies abdominal pain ,nausea, chest pain, dyspnea no other symptoms Review of Systems 2 Review of Systems: All systems reviewed & are unremarkable except as noted in HPI & below Physical Exam Physical Exam: General- eyes closed, weak but improving, oriented x 2, not in distress, speaks in sentences with no effort or accessory muscle use Eyes- anicteric Neck- no JVD Lungs- clear breath sounds bilaterally Heart- normal rate, regular rhythm; no murmurs Abdomen- normal bowel sounds, nondistended, soft, nontender Extremities- no pretibial edema, no calf tenderness Neuro- alert, oriented x 2; motor strength 3-4/5 no other new gross focal deficits Skin- warm & dry Results & Data ([facility]) Vital Signs (Past 12 Hours) Vital Signs Temp Pulse Pulse Resp BP Pulse Ox 12/12/19 07:04 36.8 C 65 75 20 161/78 H 92 12/12/19 03:24 36.8 C 67 18 154/77 H 94 12/12/19 00:29 69 12/11/19 23:34 36.9 C 71 18 180/78 H 92 Laboratory Results all noted and reviewed (1) Fatigue Fatigue type: unspecified Qualified Code(s): R53.83 - Other fatigue (2) HTN (hypertension) Hypertension type: unspecified Qualified Code(s): I10 - Essential (primary) hypertension
--- NOTE | 2019-12-12 09:58 | Hospitalist Progress Note ---
Date of Service December 12, 2019 Assessment & Plan (1) Weakness: Per previous hospitalist Dr. Nestor Resendiz's notes: Urinary tract infection likely as Metabolic Encephalopathy from urinary tract infection -She was transferred from [facility] with extreme weakness and possible UTI, and was started on IV ceftriaxone -initially urine analysis did not reveal bacteria, but urine culture growing gram negative bacilli and this as speciated as pansensitive Klebsiella in the urine by 12/06/2019 -continue IV ceftriaxone as 2 grams daily, send blood culture on 12/06/2019 to rule out bacteremia -assessment of the leg by admitting physician "Right lower extremity looked reddish with edema and increasing warmth" -however assessment by day time hospitalist does not support cellulitis on this exam on 12/05/2019 12/11/2019 Afebrile Urine culture: Positive for Klebsiella Blood cultures from 12/06/2019: Negative Given IV ceftriaxone, x5 days, transitioned to cephalexin p.o.--> d/c antibiotics already received 9 days total of Abx Also on Wellbutrin and Zoloft for depression Noted to be tired, drowsy after these were started Psychiatry service consulted-recommended to reduce Zoloft to 50 mg daily, discontinue Wellbutrin mood stable Possible Parkinson Disease Neurology consulted--> recommend trial of Sinemet 25/100 1/2 tab x 2 days, then uptitrate slowly improving increase Sinement to 1/2 tab TID, monitor (2) Fatigue: weakness/fatigue may be a combination of urinary tract infection and psych medication related? Patient with #1 (3) HTN (hypertension): Per previous hospitalist Dr. Nestor Resendiz's notes: -History of hypertension and is on multiple medications, as per patient's sister, the blood pressure can be high in the past -admission blood pressure noted to be very high in the emergency room with systolic 220 and diastolic 97 -was given labetalol initially -continue home dose medication of losartan 100 mg daily, amlodipine 5 mg daily, metoprolol succinate 75 mg daily, has prn IV hydralazine, will increase amlodipine to 10 mg daily starting on 12/07/2019 --Blood pressure still not at goal increased hydralazine to 50 mg p.o. 4 times daily Monitor closely may consider Imdur if still uncontrolled Hypokalemia Hypomagnesemia --monitor and replace (4) DM II (diabetes mellitus, type II), controlled: - hold metformin - sliding scale insulin coverage as needed (5) Depression: Management per #1 (6) CVA (cerebral vascular accident): -history of stroke in the past -CT scan of the head on admission no hemorrhage, mass effect, or evidence of acute territorial ischemia by CT criteria. (7) Subarachnoid hemorrhage: -History of subarachnoid hemorrhage in the past -CT scan of the head on admission showed aneurysm coils and ventriculostomy catheter remain intact without any new changes DVT prophylaxis SCDs only in light of history of subarachnoid hemorrhage CODE STATUS DNR/DNI sister ([phone]) makes the medical decisions Admission and Anticipated Discharge Date Admission Date: December 05, 2019 Subjective ff up for lethargy, weakness seen resting in bed, eyes closed but answering all questions appropriately speech is better, pace is faster but still rather slow states she feels improved today denies chest pain, headache, nausea, abdominal pain tolerating diet well no other symptoms Review of Systems Review of Systems: All systems reviewed & are unremarkable except as noted in HPI & below Physical Exam Physical Exam: General- oriented x 2, not in distress, speaks in sentences with no effort or accessory muscle use Eyes- anicteric Neck- no JVD Lungs- clear BS BL Heart- normal rate, regular rhythm; no murmurs Abdomen- normal bowel sounds, nondistended, soft, nontender Extremities- no pretibial edema, no calf tenderness Neuro- awake but eyes are closed, oriented x 2; motor UE 4/5, LE 3-4/5, no other new gross focal neurologic deficits Skin- warm & dry Results & Data ([facility]) Vital Signs (Past 12 Hours) Vital Signs Temp Pulse Pulse Resp BP Pulse Ox 12/12/19 07:04 36.8 C 65 75 20 161/78 H 92 12/12/19 03:24 36.8 C 67 18 154/77 H 94 12/12/19 00:29 69 12/11/19 23:34 36.9 C 71 18 180/78 H 92 Laboratory Results Laboratory Results - last 24 hr 12/11/19 12/11/19 12/11/19 11:37 16:37 20:18 ABG pH ABG pCO2 ABG pO2 ABG HCO3 ABG O2 Saturation ABG Base Excess Sher Test Barometric Pressure Oxygen Given Sodium Potassium Chloride Carbon Dioxide Anion Gap BUN Creatinine Est Cr Clr Drug Dosing Est GFR ( Amer) Est GFR (Non-Af Amer) BUN/Creatinine Ratio Glucose POC Glucose 172 H 150 H 213 H Calcium Magnesium Ammonia 12/12/19 12/12/19 12/12/19 06:36 07:36 09:26 ABG pH ABG pCO2 ABG pO2 ABG HCO3 ABG O2 Saturation ABG Base Excess Sher Test Barometric Pressure Oxygen Given Sodium 139 Potassium 3.6 Chloride 108 H Carbon Dioxide 25 Anion Gap 6.0 BUN 22 H Creatinine 0.72 Est Cr Clr Drug Dosing 72.1 Est GFR ( Amer) 92.3 Est GFR (Non-Af Amer) 79.7 BUN/Creatinine Ratio 30.3 H Glucose 166 H POC Glucose 167 H Calcium 9.8 Magnesium 2.0 Ammonia 41.1 H 12/12/19 09:26 ABG pH 7.48 H ABG pCO2 36 ABG pO2 61 L ABG HCO3 26 H ABG O2 Saturation 92.0 ABG Base Excess 2.7 H Sher Test Pos Barometric Pressure 742.2 Oxygen Given ROOM AIR Sodium Potassium Chloride Carbon Dioxide Anion Gap BUN Creatinine Est Cr Clr Drug Dosing Est GFR ( Amer) Est GFR (Non-Af Amer) BUN/Creatinine Ratio Glucose POC Glucose Calcium Magnesium Ammonia (1) Fatigue Fatigue type: unspecified Qualified Code(s): R53.83 - Other fatigue (2) HTN (hypertension) Hypertension type: unspecified Qualified Code(s): I10 - Essential (primary) hypertension
[2019-12-12 10:29] LABS: Alanine Aminotransferase 13 U/L (12-78); Albumin Level 2.6 gm/dl (3.4-5.0); Alkaline Phosphatase 85 U/L (45-117); Aspartate Aminotransferase 15 U/L (15-37); Bilirubin Direct < 0.1 mg/dl (0-0.2); Bilirubin,Total 0.3 mg/dl (0.2-1); Total Protein 6.5 gm/dl (6.4-8.2)
--- NOTE | 2019-12-12 10:34 | Gastrointestinal Consultation ---
Date of Consultation December 12, 2019 Assessment & Plan (1) Fatigue: 79 year old female with underlying neurological disease w/ fatigue, weakness, lethargy ammonia checked and elevated, no known signs of liver disease. Her confusion and current state is likely multifactorial, as ammonia is a nonspecific test unlikely to hold any signifinace in the absence of known liver disease. Repeat LFTs normal Add ABD US Thank you for allowing us to participate in the care of this patient. Please ca ll with any acute changes, questions or concerns. Please see addendum below with additional recommendation from my supervising physician. (2) Weakness: Supervising Physician Co-Signing Physician Notes Attending attestation I have seen, examined this patient, and agree with the findings and above by our mid-level provider NOAH Duran, with the following additionsAdmitted with weakness in the setting of neurologic disease. Ammonia was checked, mildly elevated, however, this is unreliable test and certainly not a screening test for hepatic encephalopathy. She has no cutaneous stigmata of liver disease, no asterixis on exam, she is able to answer some questions with ease including her name, date of , place, but she is not oriented to location or time. Physically this does not appear to be encephalopathy, her labs would not suggest liver disease and/or portal hypertension, okay with ultrasound, but if that is normal in the setting of normal LFTs very unlikely that this would be a liver etiology is contributory. I would repeat UA as this has not been done since admission, also would suggest that other etiologies be utilized to clear up the etiology of her depressed mentation. Consider delirium and/or progressive neurologic disease. History of Present Illness Reason for Consultation: elevated ammonia Requesting Physician: Anish Attending Physician: Isai Oconnell MD History of Present Illness 79 year old female with history per chart review significant for HTN, dyslipidemia, T2DM, depression, breast CA, old CVA, subarachnoid hemorrhage admitted from [facility] last week for weakness, fatigue, suspected UTI - GI asked to evaluate for elevated ammonia. Pt was seen and evaluated, chart reviewed. No family at bedside. Pt has remained lethargic, confused during course of admission. Was evaluated by psych, neuro. GI asked to evaluate as ammonia was checked given ongoing confusion and fond to be elevated. No known history of liver disease. No recent abd imaging. LFTs normal a few days ago. Allergies Allergy/AdvReac Type Severity Reaction Status Date / Time Sulfa (Sulfonamide AdvReac Unknown Unverified 12/04/19 15:29 Antibiotics) Home Medications Home Medications Medication Instructions Recorded Confirmed Type acetaminophen 1,000 mg PO BID PRN MDD 3GM APAP 10/21/18 12/04/19 History IN 24 HRS aspirin [Aspirin Low Dose] 81 mg PO QAM 10/21/18 12/04/19 History atorvastatin 10 mg PO QAM 10/21/18 12/04/19 History bupropion HCl [Wellbutrin XL] 150 mg PO QAM 10/21/18 12/04/19 History losartan 100 mg PO QAM 10/21/18 12/04/19 History metformin 1,000 mg PO QAM 10/21/18 12/04/19 History metoprolol succinate 50 mg PO QAM 10/21/18 12/04/19 History sertraline 150 mg PO QAM 10/21/18 12/04/19 History metoprolol succinate 25 mg PO QAM 01/07/19 12/04/19 History amlodipine 5 mg PO QAM 08/31/19 12/04/19 History Patient History Medical History Breast CA (Chronic) CVA (cerebral vascular accident) (Chronic) Depression (Chronic) DM II (diabetes mellitus, type II), controlled (Chronic) HLD (hyperlipidemia) (Chronic) HTN (hypertension) (Chronic) Subarachnoid hemorrhage (Resolved) Surgical History No pertinent past surgical history Family History Other Family history non-contributory Social History Preferred Language: Faroese Communication Ability: Unable Computer Systems Technician Required: No Beliefs That Will Affect Care: None marital status: / Current Living Situation: Personal Care Facility Current Living Situation Comment: resides at [facility] current occupational status: retired Other Information That Helps Us Care for You: No Feels Safe at Home: Yes Safety Concerns: Feels Safe At This Time Smoking Status: Former smoker Do You Dip or Chew Tobacco: No ; Second Hand Exposure: No ; Tobacco Cessation Education Requested by Patient: No Hx Alcohol Use: No Hx Substance Use: No Review of Systems Review of Systems: Unobtainable due to cognitive status Physical Exam Constitutional: + ill appearing (chronically ill appearing); no acute distress Neck: trachea midline Respiratory: normal respiratory effort Cardiovascular: Rate/Rhythm: regular rate Gastrointestinal (Abdomen): normal bowel sounds, soft, nontender, no hepatos plenomegaly Skin: no rashes, warm and dry Neurologic: awake no asterexis or tremor Results & Data ([facility]) Vital Signs (Past 12 Hours) Vital Signs Temp Pulse Pulse Resp BP Pulse Ox 12/12/19 07:04 36.8 C 65 75 20 161/78 H 92 12/12/19 03:24 36.8 C 67 18 154/77 H 94 12/12/19 00:29 69 12/11/19 23:34 36.9 C 71 18 180/78 H 92 (1) Fatigue Fatigue type: unspecified Qualified Code(s): R53.83 - Other fatigue
--- NOTE | 2019-12-12 13:46 | Ultrasound Report ---
US liver CLINICAL HISTORY: elevated ammonia COMPARISON STUDY: No previous studies for comparison. FINDINGS: The liver is sonographically normal. There is no biliary ductal dilatation. The common bile duct measures 2 mm in caliber. The gallbladder is mildly distended. There is sludge within the gallb ladder. There was no sonographic Wu sign. No gallbladder wall thickening is present. Pancreatic b debbie is normal. Head and tail are slightly obscured. There is no right hydronephrosis. A 1.9 cm right renal cyst is incidentally noted. There is trace right perinephric fluid. IMPRESSION: 1. Normal sonographic appearance of the liver. 2. Sludge within the gallbladder. Mild gallbladder distention. No gallbladder wall thickening. No son ographic Wu sign. 3. No biliary ductal dilatation. ACT 112: Negative or not required by law. Electronically signed by: Bret Sargent M.D. 12/12/2019 1:45 PM
--- NOTE | 2019-12-12 15:35 | Communication Note ---
Date of Service: December 12, 2019 Colette really does not look a whole lot different today than she has before we started the low-dose Sinemet. This is her first day of 3 times a day half of a 25/100 tablet and I will give it another 24 hours of time but she remains quite rigid noncommunicative, very sleepy, is sitting in bed with her head flexed on her chest, has significant blepharospasm, and significant gegenhalten rigidity with no tremor obviously seen today As in my prior notes I have strong doubts that this is degenerative Parkinson's disease and that it is a nonspecific rigid bradykinetic syndrome which is a final common pathway seen in a number of vascular and degenerative neurologic syndromes. 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
[2019-12-12] MEDS: SERTRALINE HCL 50 MG TABLET PO SCH (20:51)
[2019-12-13] MEDS: HydrALAZINE HCL 20 MG/ML VIAL IV PRN ×2 (00:10→06:03)
[2019-12-13] MEDS: LOSARTAN POTASSIUM 50 MG TAB PO SCH (08:24)
[2019-12-13] MEDS: HydrALAZINE TAB 50 MG TAB PO SCH ×4 (08:24→20:43)
[2019-12-13] MEDS: AMLODIPINE BESYLATE 5 MG TAB PO SCH (08:24)
[2019-12-13] MEDS: ASPIRIN 81 MG ECTAB PO SCH (08:24)
[2019-12-13] MEDS: INSULIN GLARGINE SOLOSTAR 100 UNITS/ML 3 ML PEN SC SCH (08:25)
[2019-12-13] MEDS: CARBIDOPA/LEVODOPA 25/100MG TAB PO SCH ×3 (08:25→20:44)
[2019-12-13] MEDS: METOPROLOL SUCC 25MG EXT REL TAB PO SCH (08:25)
[2019-12-13] MEDS: METOPROLOL SUCC 50MG EXT REL TAB PO SCH (08:25)
[2019-12-13] MEDS: INSULIN ASPART 100 UNITS/ML 3 ML PEN SC SCH ×4 (08:25→21:04)
[2019-12-13 08:32] LABS: BUN Creatinine Ratio 33.2 (10-20); Est GFR (Non-African American) 82.8; Magnesium 2.1 mg/dl (1.8-2.4); Potassium 3.4 mmol/L (3.5-5.1)
[2019-12-13] MEDS ORDERED: HydrALAZINE HCL 20 MG/ML VIAL IV PRN (11:51)
[2019-12-13] MEDS: cloNIDine HCL 0.1 MG TAB PO SCH ×2 (12:24→20:44)
--- NOTE | 2019-12-13 12:47 | Electroencephalogram ---
EEG Procedure Note Date of Service December 13, 2019 Start / End Times Start Time: 0848 End Time: 0908 Referring Physician Maged Proctor MD History Progressive lethargy with diminished responsiveness bradykinesia and rigidity of unknown cause post remote subarachnoid hemorrhage Home Medication List Home Medications Medication Instructions Recorded Confirmed Type acetaminophen 1,000 mg PO BID PRN MDD 3GM APAP 10/21/18 12/04/19 History IN 24 HRS aspirin [Aspirin Low Dose] 81 mg PO QAM 10/21/18 12/04/19 History atorvastatin 10 mg PO QAM 10/21/18 12/04/19 History bupropion HCl [Wellbutrin XL] 150 mg PO QAM 10/21/18 12/04/19 History losartan 100 mg PO QAM 10/21/18 12/04/19 History metformin 1,000 mg PO QAM 10/21/18 12/04/19 History metoprolol succinate 50 mg PO QAM 10/21/18 12/04/19 History sertraline 150 mg PO QAM 10/21/18 12/04/19 History metoprolol succinate 25 mg PO QAM 01/07/19 12/04/19 History amlodipine 5 mg PO QAM 08/31/19 12/04/19 History Inpatient Medication List Acetaminophen (Tylenol) 1,000 mg PO BID PRN PRN Reason: Pain Stop: 01/03/20 18:49 Last Admin: 12/07/19 18:51 Dose: 1,000 mg Documented by: [id number] Amlodipine Besylate (Norvasc) 10 mg PO [facility] Stop: 01/06/20 08:59 Last Admin: 12/13/19 08:24 Dose: 10 mg Documented by: [id number] Admin: 12/12/19 08:15 Dose: 10 mg Documented by: [id number] Admin: 12/11/19 08:02 Dose: 10 mg Documented by: [id number] Admin: 12/10/19 08:19 Dose: 10 mg Documented by: [id number] Admin: 12/09/19 09:23 Dose: 10 mg Documented by: [id number] Admin: 12/08/19 09:08 Dose: 10 mg Documented by: [id number] Admin: 12/07/19 09:16 Dose: 10 mg Documented by: [id number] Aspirin (Ecotrin Ectab) [facility] Stop: 01/04/20 08:59 Last Admin: 12/13/19 08:24 Dose: 81 mg Documented by: [id number] Admin: 12/12/19 08:15 Dose: 81 mg Documented by: [id number] Admin: 12/11/19 08:02 Dose: 81 mg Documented by: [id number] Admin: 12/10/19 08:19 Dose: 81 mg Documented by: [id number] Admin: 12/09/19 09:23 Dose: 81 mg Documented by: [id number] Admin: 12/08/19 09:08 Dose: 81 mg Documented by: [id number] Admin: 12/07/19 09:00 Dose: 81 mg Documented by: [id number] Admin: 12/06/19 10:21 Dose: 81 mg Documented by: [id number] Admin: 12/05/19 09:57 Dose: 81 mg Documented by: [id number] Carbidopa/Levodopa (Sinemet 25/100 Mg) 0.5 tab PO TID KARLA Stop: 01/11/20 13:59 Last Admin: 12/13/19 12:24 Dose: 0.5 tab Documented by: [id number] Admin: 12/13/19 08:25 Dose: 0.5 tab Documented by: [id number] Admin: 12/12/19 20:51 Dose: 0.5 tab Documented by: [id number] Admin: 12/12/19 13:53 Dose: 0.5 tab Documented by: [id number] Clonidine HCl (Catapres) 0.1 mg PO BID KARLA Stop: 01/12/20 11:59 Last Admin: 12/13/19 12:24 Dose: 0.1 mg Documented by: [id number] Hydralazine HCl (Apresoline) 50 mg PO QID KARLA Stop: 01/10/20 16:59 Last Admin: 12/13/19 12:24 Dose: 50 mg Documented by: [id number] Admin: 12/13/19 08:24 Dose: 50 mg Documented by: [id number] Admin: 12/12/19 20:51 Dose: 50 mg Documented by: [id number] Admin: 12/12/19 17:05 Dose: 50 mg Documented by: [id number] Admin: 12/12/19 13:53 Dose: 50 mg Documented by: [id number] Admin: 12/12/19 08:14 Dose: 50 mg Documented by: [id number] Admin: 12/11/19 21:00 Dose: 50 mg Documented by: [id number] Admin: 12/11/19 17:46 Dose: 50 mg Documented by: [id number] Insulin Aspart (Novolog Flexpen) 0 units SC ACHS KARLA Stop: 01/03/20 20:59 Last Admin: 12/13/19 12:25 Dose: 2 units Documented by: [id number] Cosigned by: [id number] Admin: 12/13/19 08:25 Dose: 1 units Documented by: [id number] Cosigned by: [id number] Admin: 12/12/19 20:50 Dose: 1 units Documented by: [id number] Cosigned by: [id number] Admin: 12/12/19 17:08 Dose: 4 units Documented by: [id number] Cosigned by: [id number] Admin: 12/12/19 14:30 Dose: 3 units Documented by: [id number] Cosigned by: [id number] Admin: 12/12/19 08:13 Dose: 4 units Documented by: [id number] Cosigned by: [id number] Admin: 12/11/19 21:01 Dose: 3 units Documented by: [id number] Cosigned by: [id number] Admin: 12/11/19 17:44 Dose: 5 units Documented by: [id number] Cosigned by: [id number] Admin: 12/11/19 12:39 Dose: 4 units Documented by: [id number] Cosigned by: [id number] Admin: 12/11/19 08:08 Dose: 2 units Documented by: [id number] Cosigned by: [id number] Admin: 12/10/19 20:43 Dose: 2 units Documented by: [id number] Cosigned by: [id number] Admin: 12/10/19 17:32 Dose: 3 units Documented by: [id number] Cosigned by: [id number] Admin: 12/10/19 12:10 Dose: 3 units Documented by: [id number] Cosigned by: [id number] Admin: 12/10/19 08:18 Dose: 5 units Documented by: [id number] Cosigned by: [id number] Admin: 12/09/19 21:50 Dose: 2 units Documented by: [id number] Cosigned by: [id number] Admin: 12/09/19 17:13 Dose: 7 units Documented by: [id number] Cosigned by: [id number] Admin: 12/09/19 12:50 Dose: 5 units Documented by: [id number] Cosigned by: [id number] Admin: 12/09/19 09:20 Dose: 1 units Documented by: [id number] Cosigned by: [id number] Admin: 12/08/19 21:23 Dose: 3 units Documented by: [id number] Cosigned by: [id number] Admin: 12/08/19 17:22 Dose: 2 units Documented by: [id number] Cosigned by: [id number] Admin: 12/08/19 12:19 Dose: 1 units Documented by: [id number] Cosigned by: [id number] Admin: 12/08/19 09:07 Dose: 1 units Documented by: [id number] Cosigned by: [id number] Admin: 12/07/19 20:38 Dose: 3 units Documented by: [id number] Cosigned by: [id number] Admin: 12/07/19 17:21 Dose: 2 units Documented by: [id number] Cosigned by: [id number] Admin: 12/07/19 12:53 Dose: 5 units Documented by: [id number] Cosigned by: [id number] Admin: 12/07/19 09:00 Dose: Not Given Documented by: [id number] Cosigned by: [id number] Admin: 12/06/19 20:16 Dose: 2 units Documented by: [id number] Cosigned by: [id number] Admin: 12/06/19 17:32 Dose: Not Given Documented by: [id number] Cosigned by: [id number] Admin: 12/06/19 12:53 Dose: 5 units Documented by: [id number] Cosigned by: [id number] Admin: 12/06/19 10:27 Dose: 2 units Documented by: [id number] Cosigned by: [id number] Admin: 12/05/19 20:37 Dose: 5 units Documented by: [id number] Cosigned by: [id number] Admin: 12/05/19 17:32 Dose: 4 units Documented by: [id number] Cosigned by: [id number] Admin: 12/05/19 13:21 Dose: 2 units Documented by: [id number] Cosigned by: [id number] Admin: 12/05/19 09:57 Dose: 2 units Documented by: [id number] Cosigned by: [id number] Admin: 12/04/19 20:07 Dose: 3 units Documented by: [id number] Cosigned by: [id number] Insulin Glargine (Lantus Solostar Pen) 8 units SC DAILY KARLA Stop: 01/07/20 14:29 Last Admin: 12/13/19 08:25 Dose: 8 units Documented by: [id number] Cosigned by: [id number] Admin: 12/12/19 08:14 Dose: 8 units Documented by: [id number] Cosigned by: [id number] Admin: 12/11/19 08:09 Dose: 8 units Documented by: [id number] Cosigned by: [id number] Admin: 12/10/19 08:19 Dose: 8 units Documented by: [id number] Cosigned by: [id number] Admin: 12/09/19 09:22 Dose: 8 units Documented by: [id number] Cosigned by: [id number] Admin: 12/08/19 15:53 Dose: 8 units Documented by: [id number] Cosigned by: [id number] Losartan Potassium (Cozaar) 100 mg PO QAM KARLA Stop: 01/04/20 08:59 Last Admin: 12/13/19 08:24 Dose: 100 mg Documented by: [id number] Admin: 12/12/19 08:15 Dose: 100 mg Documented by: [id number] Admin: 12/11/19 08:02 Dose: 100 mg Documented by: [id number] Admin: 12/10/19 08:19 Dose: 100 mg Documented by: [id number] Admin: 12/09/19 09:23 Dose: 100 mg Documented by: [id number] Admin: 12/08/19 09:07 Dose: 100 mg Documented by: [id number] Admin: 12/07/19 09:01 Dose: 100 mg Documented by: [id number] Admin: 12/06/19 10:21 Dose: 100 mg Documented by: [id number] Admin: 12/05/19 07:42 Dose: 100 mg Documented by: [id number] Metoprolol Succinate (Toprol Xl) 25 mg PO QAM KARLA Stop: 01/04/20 08:59 Last Admin: 12/13/19 08:25 Dose: 25 mg Documented by: [id number] Admin: 12/12/19 08:16 Dose: 25 mg Documented by: [id number] Admin: 12/11/19 08:03 Dose: 25 mg Documented by: [id number] Admin: 12/10/19 09:13 Dose: 25 mg Documented by: [id number] Admin: 12/09/19 09:23 Dose: 25 mg Documented by: [id number] Admin: 12/08/19 09:08 Dose: 25 mg Documented by: [id number] Admin: 12/07/19 09:01 Dose: 25 mg Documented by: [id number] Admin: 12/06/19 10:23 Dose: 25 mg Documented by: [id number] Admin: 12/05/19 07:44 Dose: 25 mg Documented by: [id number] Metoprolol Succinate (Toprol Xl) 50 mg PO [facility] Stop: 01/04/20 08:59 Last Admin: 12/13/19 08:25 Dose: 50 mg Documented by: [id number] Admin: 12/12/19 08:16 Dose: 50 mg Documented by: [id number] Admin: 12/11/19 08:03 Dose: 50 mg Documented by: [id number] Admin: 12/10/19 08:19 Dose: 50 mg Documented by: [id number] Admin: 12/09/19 09:23 Dose: 50 mg Documented by: [id number] Admin: 12/08/19 09:08 Dose: 50 mg Documented by: [id number] Admin: 12/07/19 09:01 Dose: 50 mg Documented by: [id number] Admin: 12/06/19 10:21 Dose: 50 mg Documented by: [id number] Admin: 12/05/19 07:42 Dose: 50 mg Documented by: [id number] Sertraline HCl (Zoloft) 50 mg PO [facility] Stop: 01/07/20 20:59 Last Admin: 12/12/19 20:51 Dose: 50 mg Documented by: [id number] Admin: 12/11/19 21:00 Dose: 50 mg Documented by: [id number] Admin: 12/10/19 20:39 Dose: 50 mg Documented by: [id number] Admin: 12/09/19 21:50 Dose: 50 mg Documented by: [id number] Admin: 12/08/19 21:22 Dose: 50 mg Documented by: [id number] Discontinued Medications Amlodipine Besylate (Norvasc) 5 mg PO [facility] Stop: 01/03/20 19:29 Last Admin: 12/06/19 17:15 Dose: Not Given Documented by: [id number] Admin: 12/05/19 07:44 Dose: 5 mg Documented by: [id number] Admin: 12/04/19 20:07 Dose: 5 mg Documented by: [id number] Atorvastatin Calcium (Lipitor) 10 mg PO [facility] Stop: 01/04/20 08:59 Last Admin: 12/09/19 09:23 Dose: 10 mg Documented by: [id number] Admin: 12/08/19 09:08 Dose: 10 mg Documented by: [id number] Admin: 12/07/19 09:01 Dose: 10 mg Documented by: [id number] Admin: 12/06/19 10:23 Dose: 10 mg Documented by: [id number] Admin: 12/05/19 09:56 Dose: 10 mg Documented by: [id number] Bupropion HCl (Wellbutrin-Xl) 150 mg PO QAM KARLA Stop: 01/04/20 08:59 Last Admin: 12/07/19 09:02 Dose: 150 mg Documented by: [id number] Admin: 12/06/19 10:28 Dose: 150 mg Documented by: [id number] Admin: 12/05/19 09:57 Dose: 150 mg Documented by: [id number] Carbidopa/Levodopa (Sinemet 25/100 Mg) 0.5 tab PO BID KARLA Stop: 01/09/20 11:44 Last Admin: 12/12/19 08:16 Dose: 0.5 tab Documented by: [id number] Admin: 12/11/19 21:00 Dose: 0.5 tab Documented by: [id number] Admin: 12/11/19 08:02 Dose: 0.5 tab Documented by: [id number] Admin: 12/10/19 20:40 Dose: 0.5 tab Documented by: [id number] Admin: 12/10/19 12:10 Dose: 0.5 tab Documented by: [id number] Cephalexin HCl (Keflex) 500 mg PO BID KARLA Stop: 12/14/19 15:59 Last Admin: 12/12/19 08:15 Dose: 500 mg Documented by: [id number] Admin: 12/11/19 21:00 Dose: 500 mg Documented by: [id number] Admin: 12/11/19 08:02 Dose: 500 mg Documented by: [id number] Admin: 12/10/19 20:40 Dose: 500 mg Documented by: [id number] Admin: 12/10/19 08:19 Dose: 500 mg Documented by: [id number] Admin: 12/09/19 16:08 Dose: 500 mg Documented by: [id number] Heparin Sodium (Porcine) (Heparin Sodium (Porcine)) 5,000 units SQ Q12 KARLA Stop: 01/03/20 20:59 Last Admin: 12/07/19 09:01 Dose: 5,000 units Documented by: [id number] Cosigned by: [id number] Admin: 12/06/19 20:18 Dose: 5,000 units Documented by: [id number] Cosigned by: [id number] Admin: 12/06/19 10:21 Dose: 5,000 units Documented by: [id number] Cosigned by: [id number] Admin: 12/05/19 20:39 Dose: 5,000 units Documented by: [id number] Cosigned by: [id number] Admin: 12/05/19 09:57 Dose: 5,000 units Documented by: [id number] Cosigned by: [id number] Admin: 12/04/19 20:07 Dose: 5,000 units Documented by: [id number] Cosigned by: [id number] Hydralazine HCl (Hydralazine Hcl) 5 mg IV Q6H PRN PRN Reason: sbp greater than 160 Stop: 01/03/20 19:14 Last Admin: 12/13/19 06:03 Dose: 5 mg Documented by: [id number] Admin: 12/13/19 00:10 Dose: 5 mg Documented by: [id number] Admin: 12/09/19 01:02 Dose: 5 mg Documented by: [id number] Admin: 12/08/19 04:54 Dose: 5 mg Documented by: [id number] Admin: 12/07/19 00:48 Dose: 5 mg Documented by: [id number] Admin: 12/06/19 15:57 Dose: 5 mg Documented by: [id number] Admin: 12/05/19 23:57 Dose: 5 mg Documented by: [id number] Admin: 12/05/19 18:10 Dose: 5 mg Documented by: [id number] Hydralazine HCl (Apresoline) 25 mg PO BID KARLA Stop: 01/07/20 20:59 Last Admin: 12/09/19 10:05 Dose: 25 mg Documented by: [id number] Admin: 12/08/19 21:22 Dose: 25 mg Documented by: [id number] Hydralazine HCl (Apresoline) 50 mg PO TID KARLA Stop: 01/08/20 16:59 Last Admin: 12/11/19 13:52 Dose: 50 mg Documented by: [id number] Admin: 12/11/19 08:01 Dose: 50 mg Documented by: [id number] Admin: 12/10/19 20:39 Dose: 50 mg Documented by: [id number] Admin: 12/10/19 13:43 Dose: 50 mg Documented by: [id number] Admin: 12/10/19 08:19 Dose: 50 mg Documented by: [id number] Admin: 12/09/19 21:50 Dose: 50 mg Documented by: [id number] Admin: 12/09/19 17:51 Dose: 50 mg Documented by: [id number] Sodium Chloride (Nss) 500 mls @ 999 mls/hr IV .Q31M KARLA Stop: 12/04/19 15:15 Last Infusion: 12/04/19 16:24 Dose: 0 mls/hr Documented by: [id number] Admin: 12/04/19 15:53 Dose: 999 mls/hr Documented by: [id number] Ceftriaxone Sodium (Rocephin) 2,000 mg in 70 mls @ 140 mls/hr IV NOW STA Stop: 12/04/19 17:02 Last Infusion: 12/04/19 17:43 Dose: 0 mls/hr Documented by: [id number] Admin: 12/04/19 17:04 Dose: 140 mls/hr Documented by: [id number] Ceftriaxone Sodium 1,000 mg/ (Dextrose) 50 mls @ 100 mls/hr IV Q24H KARLA; Protocol Stop: 12/09/19 17:14 Last Admin: 12/04/19 19:24 Dose: Not Given Documented by: [id number] Ceftriaxone Sodium 2,000 mg/ (Dextrose) 70 mls @ 100 mls/hr IV Q24H KARLA; Protocol Stop: 12/10/19 15:59 Last Infusion: 12/08/19 16:40 Dose: 0 mls/hr Documented by: [id number] Admin: 12/08/19 15:55 Dose: 100 mls/hr Documented by: [id number] Infusion: 12/07/19 16:56 Dose: 100 mls/hr Documented by: [id number] Admin: 12/07/19 16:04 Dose: 100 mls/hr Documented by: [id number] Infusion: 12/06/19 16:43 Dose: 0 mls/hr Documented by: [id number] Admin: 12/06/19 15:57 Dose: 100 mls/hr Documented by: [id number] Infusion: 12/05/19 17:13 Dose: 0 mls/hr Documented by: [id number] Admin: 12/05/19 16:18 Dose: 100 mls/hr Documented by: [id number] Magnesium Sulfate/Dextrose (Magnesium Sulfate / D5w) 1 gm in 100 mls @ 100 mls/hr IV Q1H KARLA Stop: 12/05/19 16:14 Last Infusion: 12/05/19 16:16 Dose: 0 mls/hr Documented by: [id number] Admin: 12/05/19 15:17 Dose: 100 mls/hr Documented by: [id number] Infusion: 12/05/19 15:17 Dose: 100 mls/hr Documented by: [id number] Admin: 12/05/19 14:16 Dose: 100 mls/hr Documented by: [id number] Potassium Chloride (K Benito / Wtr) 10 meq in 100 mls @ 100 mls/hr IV Q1H KARLA Stop: 12/05/19 16:14 Last Infusion: 12/05/19 17:13 Dose: 0 mls/hr Documented by: [id number] Admin: 12/05/19 15:28 Dose: 75 mls/hr Documented by: [id number] Infusion: 12/05/19 15:28 Dose: 75 mls/hr Documented by: [id number] Admin: 12/05/19 14:17 Dose: 75 mls/hr Documented by: [id number] Potassium Chloride (K Benito / Wtr) 10 meq in 100 mls @ 100 mls/hr IV Q1H KARLA Stop: 12/06/19 12:29 Last Infusion: 12/06/19 15:11 Dose: 0 mls/hr Documented by: [id number] Admin: 12/06/19 13:58 Dose: 100 mls/hr Documented by: [id number] Infusion: 12/06/19 13:50 Dose: 0 mls/hr Documented by: [id number] Admin: 12/06/19 12:50 Dose: 100 mls/hr Documented by: [id number] Labetalol HCl (Normodyne) 10 mg IV NOW STA Stop: 12/04/19 17:24 Last Admin: 12/04/19 17:42 Dose: 10 mg Documented by: [id number] Cosigned by: [id number] Pneumococcal Polyvalent Vaccine (Pneumovax-23) 25 mcg IM .ONCE ONE Stop: 12/04/19 17:50 Last Admin: 12/07/19 16:38 Dose: 25 mcg Documented by: [id number] Potassium Chloride (Klor-Con M20) 40 meq PO NOW STA Stop: 12/11/19 16:50 Last Admin: 12/11/19 17:51 Dose: 40 meq Documented by: [id number] Sertraline HCl (Zoloft) 150 mg PO QAM KARLA Stop: 01/04/20 08:59 Last Admin: 12/07/19 09:01 Dose: 150 mg Documented by: [id number] Admin: 12/06/19 10:22 Dose: 150 mg Documented by: [id number] Admin: 12/05/19 09:56 Dose: 150 mg Documented by: [id number] Description This is a 21 electrode EEG with a single channel dedicated to limited EKG. The electrodes were placed in accordance with the International 10-20 system. This EEG obtained on a patient who is lethargic stuporous and poorly arousable is likely done in a drowsy state and is characterized by the presence of a background rhythm in the mid theta range of up to 6 Hz and maximum frequency of up to 30 V maximum amplitude which is maximum posterior head regions and bilaterally symmetrical. Central theta and delta activity ranging from 4 to 6 Hz and of higher amplitude is seen in symmetrical fashion. Beta activity is difficult to detect beneath some of the muscle movement artifacts Photic stimulation provokes a minimal driving response but does appear to in crease the frequency of the background theta activity into a slightly higher theta range but no photo myogenic or photoparoxysmal components are noted Alert time during the tracing is or evidence for clear-cut potentially epileptogenic features and triphasic waves are not evident Interpretation This EEG is moderately to moderately severely diffusely abnormal with an absence of normal background alpha rhythm and a predominant activity in the theta delta range which is symmetrical and not associated with any focal accentuation or potentially epileptogenic patterns Clinical Correlation This EEG reveals evidence for moderate to moderately severe nonspecific diffuse encephalopathy without focal features or associated potentially epileptogenic activity and may be seen in a wide range of toxic or metabolic encephalopathy's, in the presence of diffuse multifocal subcortical structural disease etc. Maged Proctor MD
--- NOTE | 2019-12-13 14:06 | Nephrology Consultation ---
Date of Consultation December 13, 2019 Assessment & Plan (1) Hypertensive urgency: understandable to avoid diuretics where possible in frail elderly pt w/ voiding concerns; however will not be able to control bp w/o diuretics. goal sbp is 140s-150s for several days, then move to 120-130s over days systolic unless neurology favors different target -trial of spironolactone 25 mg daily, starting today; order in -daily bmp -cont current meds Present on Admission?: Yes History of Present Illness Reason for Consultation: persistent HTN Requesting Physician: Dr Oconnell Attending Physician: Isai Oconnell MD History of Present Illness 79 y/o F whom I'm asked to see for persistent HTN after she was admitted here on 12/03 for profound lethargy/generalized weakness and hypertensive urgency. Also concern intially at admission for infection possibly uti or RLe cellulitis which she'd been battling since September. Other PMH includes HTN, HL, hx subarachnoid hemorrhage s/p coiling and ventriculostomy (catheter still in place), DM2. her systolic bp over last 48 hrs have ranged generally in 160-170s w/ HR mid 60s. She is currently getting clonidine 0.1 mg bid, hydralazine 50 mg qid, toprol XL 75 mg qAM, losartan 100 mg daily, amlodipine 10 mg daily. Came in on amlodipine 5 mg daily, losartan 100 mg daily, toprol xl 75 mg daily. 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 She is on a trial of sinemet for this currently. She is obtunded when I evaluated her > does not open eyes or follow commands or give hx. Dr Oconnell states this has been her baseline. Allergies Allergy/AdvReac Type Severity Reaction Status Date / Time Sulfa (Sulfonamide AdvReac Unknown Unverified 12/04/19 15:29 Antibiotics) Home Medications Home Medications Medication Instructions Recorded Confirmed Type acetaminophen 1,000 mg PO BID PRN MDD 3GM APAP 10/21/18 12/04/19 History IN 24 HRS aspirin [Aspirin Low Dose] 81 mg PO QAM 10/21/18 12/04/19 History atorvastatin 10 mg PO QAM 10/21/18 12/04/19 History bupropion HCl [Wellbutrin XL] 150 mg PO QAM 10/21/18 12/04/19 History losartan 100 mg PO QAM 10/21/18 12/04/19 History metformin 1,000 mg PO QAM 10/21/18 12/04/19 History metoprolol succinate 50 mg PO QAM 10/21/18 12/04/19 History sertraline 150 mg PO QAM 10/21/18 12/04/19 History metoprolol succinate 25 mg PO QAM 01/07/19 12/04/19 History amlodipine 5 mg PO QAM 08/31/19 12/04/19 History Patient History Medical History Breast CA (Chronic) CVA (cerebral vascular accident) (Chronic) Depression (Chronic) DM II (diabetes mellitus, type II), controlled (Chronic) HLD (hyperlipidemia) (Chronic) HTN (hypertension) (Chronic) Subarachnoid hemorrhage (Resolved) s/p coiling and w/ indwelling ventriculostomy catheter Surgical History No pertinent past surgical history Family History Other Family history non-contributory Social History Preferred Language: Citizen Of [place] Communication Ability: Unable Binder Layer Required: No Beliefs That Will Affect Care: None marital status: / Current Living Situation: Personal Care Facility Current Living Situation Comment: resides at [facility] current occupational status: retired Other Information That Helps Us Care for You: No Feels Safe at Home: Yes Safety Concerns: Feels Safe At This Time Smoking Status: Former smoker Do You Dip or Chew Tobacco: No ; Second Hand Exposure: No ; Tobacco Cessation Education Requested by Patient: No Hx Alcohol Use: No Hx Substance Use: No Review of Systems Review of Systems: Unobtainable due to reduced consciousness Physical Exam Constitutional: well developed and well nourished; no acute distress lying flat on RA Eyes: eyes tightly closed ENMT: Ears: no external ear abnormality Nose: no external nose abnormality Mouth: + dry oral mucous membranes Neck: no nuchal rigidity Respiratory: normal respiratory effort Auscultation: lungs clear to auscultation bilaterally (anterior exam) and + diminished lung sounds Cardiovascular: RRR, no murmur, no edema Gastrointestinal (Abdomen): Inspection/Auscultation: normal bowel sounds Percussion/Palpation: abdomen soft; abdomen nontender Musculoskeletal: Extremities: + limited ROM of extremities and + abnormal stre ngth Skin: no rashes, warm and dry Neurologic: + obtunded Genitourinary: no cox Results & Data Vital Signs (Past 12 Hours) Vital Signs Temp Pulse Pulse Resp BP Pulse Ox 12/13/19 11:25 36.8 C 67 16 176/91 H 94 12/13/19 07:14 66 12/13/19 07:05 36.8 C 82 20 177/80 H 95 12/13/19 06:02 184/86 H 12/13/19 04:10 36.8 C 63 18 168/83 H 92 Laboratory Results 12/10/19 07:25 12/13/19 07:14
--- NOTE | 2019-12-13 14:14 | Neurology Progress Note ---
Date of Service December 13, 2019 Assessment & Plan (1) Weakness: 1. very lethargic and weak- need family input for baseline 2. correct lyte abnormalities 3. check B12, folate, thiamine 4. if not eating well may need thiamine started 5. treat any infectious processes 6. nephrology following 7. HTN - optimize 8. psychiatry for further recommendations (2) HTN (hypertension): Admission and Anticipated Discharge Date Admission Date: December 05, 2019 Supervising Physician Co-Signing Physician Notes I have seen and discussed above patient with Dr Maged Proctor, neurology I saw Colette today and was impressed that she was able to answer some questions and obey some simple commands but throughout all of it remained very rigid with a mixture of gegenhalten and some cogwheel phenomenon, kept her eyes tightly closed, had her head down on her chest and appeared very little changed in terms of her motor system despite being on Sinemet one half of a 25/100 tablet 3 times a day now for about 2 days I continue to doubt that this is going to be a dopamine responsive bradykinetic rigid syndrome but will recommend that we push the dose all the way to a single 25/100 mg Sinemet tablet 3 times a day and see how she does over the next 2 to 3 days. 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 Again I am not sure were ever going to come up with a diagnosis here other than a "perfect storm" of toxic/metabolic, infectious, and ongoing degenerative BRIM IRONER HAND disease acting in concert to produce this clinical picture which I fear is going to be partially reversible or if reversible will take quite a bit of time We will check back with her tomorrow Maged Proctor MD Subjective Colette is a 79 year old obese female with PMH HTN, HLD, DM 2, history of CVA, SAH, depression and history of breast cancer sent from [facility] this afternoon with increasing weakness and inability to pass urine. She is extremely weak and lethargic. Given the complaints of extreme weakness and tiredness and with high blood pressure. She is easily aroused and follows commands. denies pain. Colette is a 79 year old obese female with PMH HTN, HLD, DM 2, history of CVA, SAH, depression and history of breast cancer sent from [facility] with increasing weakness and inability to pass urine. She is extremely weak and lethargic. Given the complaints of extreme weakness and tiredness and with high blood pressure. She is easily aroused and follows commands. denies pain. 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 4/5, wiggles toes bradykinesia , rigid UE Results & Data ([facility]) Vital Signs (Past 12 Hours) Vital Signs Temp Pulse Pulse Resp BP Pulse Ox 12/13/19 11:25 36.8 C 67 16 176/91 H 94 12/13/19 07:14 66 12/13/19 07:05 36.8 C 82 20 177/80 H 95 12/13/19 06:02 184/86 H 12/13/19 04:10 36.8 C 63 18 168/83 H 92 Laboratory Results Abnormal lab results 12/12/19 12/12/19 12/13/19 Range/Units 16:31 20:24 07:14 Potassium 3.4 L (3.5-5.1) mmol/L Chloride 110 H (98-107) mmol/L BUN 23 H (7-18) mg/dl BUN/Creatinine Ratio 33.2 H (10-20) Glucose 151 H (70-99) mg/dl POC Glucose 196 H 156 H (70-99) mg/dl 12/13/19 12/13/19 Range/Units 07:33 11:43 Potassium (3.5-5.1) mmol/L Chloride (98-107) mmol/L BUN (7-18) mg/dl BUN/Creatinine Ratio (10-20) Glucose (70-99) mg/dl POC Glucose 147 H 170 H (70-99) mg/dl Diagnostic Findings This EEG reveals evidence for moderate to moderately severe nonspecific diffuse encephalopathy without focal features or associated potentially epileptogenic activity and may be seen in a wide range of toxic or metabolic encephalopathy's, in the presence of diffuse multifocal subcortical structural disease etc. (1) HTN (hypertension) Hypertension type: unspecified Qualified Code(s): I10 - Essential (primary) hypertension
[2019-12-13] MEDS: SPIRONOLACTONE 25 MG TAB PO SCH (15:25)
[2019-12-13] MEDS: SERTRALINE HCL 50 MG TABLET PO SCH (20:45)
--- NOTE | 2019-12-13 20:55 | Hospitalist Progress Note ---
Date of Service December 13, 2019 Assessment & Plan (1) Weakness: Weakness, lethargy, likely multifactorial: Due to UTI, psychiatric medications, possible Parkinson disease transferred from [facility] with extreme weakness and possible UTI, and was started on IV ceftriaxone Urine culture: Positive for Klebsiella Blood cultures from 12/06/2019: Negative Given IV ceftriaxone, x5 days, transitioned to cephalexin p.o--> has dated 7 days of antibiotic therapy Also on Wellbutrin and Zoloft for depression Noted to be tired, drowsy after these were started Psychiatry service consulted-recommended to reduce Zoloft to 50 mg daily, discontinue Wellbutrin mood stable Possible Parkinson Disease Neurology consulted patient's weakness and lethargy did not improve--> recommend trial of Sinemet 25/100 Sinemet being slowly uptitrated, started with half tablet twice daily then 3 times daily, with some improvement of mentation and motor strength Today will increase to 1 tablet 3 times daily Continue to monitor Continue PT OT (2) HTN (hypertension): -admission blood pressure noted to be very high in the emergency room with systolic 220 and diastolic 97 -continued on home dose medication of losartan 100 mg daily, amlodipine 5 mg daily, metoprolol succinate 75 mg daily --Blood pressure not at goal Amlodipine increased to 10 mg p.o. daily Added and uptitrated hydralazine to 50 mg p.o. 4 times daily Nephrology consulted for hypertensive regimen recommendations Hypokalemia Hypomagnesemia --monitor and replace (3) DM II (diabetes mellitus, type II), controlled: - hold metformin - sliding scale insulin coverage as needed (4) Depression: Management per #1 (5) CVA (cerebral vascular accident): -history of stroke in the past -CT scan of the head on admission no hemorrhage, mass effect, or evidence of acute territorial ischemia by CT criteria. (6) Subarachnoid hemorrhage: -History of subarachnoid hemorrhage in the past -CT scan of the head on admission showed aneurysm coils and ventriculostomy catheter remain intact without any new changes DVT prophylaxis SCDs only in light of history of subarachnoid hemorrhage CODE STATUS DNR/DNI sister ([phone]) makes the medical decisions Disposition Case management on board, transition to [facility] when medically stable Admission and Anticipated Discharge Date Admission Date: December 05, 2019 Subjective Follow-up for altered mental status, lethargy Seen resting in bed, sleeping, awakened with painful stimuli Able to open eyes for a few seconds, answers questions appropriately She feels fine overall, just tired Able to raise arms to some degree, squeeze examiner's fingers Denies shortness of breath, abdominal pain, nausea Able to take meals, take medication with assistance No other symptoms Review of Systems Review of Systems: All systems reviewed & are unremarkable except as noted in HPI & below Physical Exam Physical Exam: General- oriented x 2, not in distress, speaks in sentences with no effort or accessory muscle use Eyes- anicteric Neck- no JVD Lungs- clear breath sounds no crackles or wheezing bilaterally Heart- normal rate, regular rhythm; no murmurs Abdomen- normal bowel sounds, nondistended, soft, nontender Extremities- no pretibial edema, no calf tenderness Neuro-nausea, oriented x2, monitor exam 4/5 upper extremity, 3/5 lower extremity No other new gross focal neurologic deficits Skin- warm & dry Results & Data ([facility]) Vital Signs (Past 12 Hours) Vital Signs Temp Pulse Pulse Resp BP Pulse Ox 12/13/19 19:57 36.7 C 63 18 158/82 H 94 12/13/19 16:10 36.4 C L 60 20 149/74 H 94 12/13/19 16:03 57 L 12/13/19 11:25 36.8 C 67 16 176/91 H 94 (1) HTN (hypertension) Hypertension type: unspecified Qualified Code(s): I10 - Essential (primary) hypertension
[2019-12-13] MEDS ORDERED: POTASSIUM CHLORIDE 20 MEQ TABCR PO STA (21:03)
[2019-12-13] MEDS ORDERED: POTASSIUM CHLORIDE 20 MEQ/15 ML UDC PO ONE (21:15)
[2019-12-14 07:07] LABS: BUN Creatinine Ratio 31.6 (10-20); Calcium 10.2 mg/dl (8.5-10.1); Creatinine Clr Calc Pharmacy 61.5 ml/min; Est GFR (African American) 76.6; Est GFR (Non-African American) 66.1; Magnesium 2.2 mg/dl (1.8-2.4)
[2019-12-14] MEDS: SPIRONOLACTONE 25 MG TAB PO SCH (08:12)
[2019-12-14] MEDS: INSULIN GLARGINE SOLOSTAR 100 UNITS/ML 3 ML PEN SC SCH (08:13)
[2019-12-14] MEDS: LOSARTAN POTASSIUM 50 MG TAB PO SCH (08:13)
[2019-12-14] MEDS: METOPROLOL SUCC 50MG EXT REL TAB PO SCH (08:13)
[2019-12-14] MEDS: AMLODIPINE BESYLATE 5 MG TAB PO SCH (08:13)
[2019-12-14] MEDS: CARBIDOPA/LEVODOPA 25/100MG TAB PO SCH ×3 (08:13→20:35)
[2019-12-14] MEDS: HydrALAZINE TAB 50 MG TAB PO SCH ×3 (08:13→20:35)
[2019-12-14] MEDS: METOPROLOL SUCC 25MG EXT REL TAB PO SCH (08:13)
[2019-12-14] MEDS: cloNIDine HCL 0.1 MG TAB PO SCH ×3 (08:13→20:35)
[2019-12-14] MEDS: INSULIN ASPART 100 UNITS/ML 3 ML PEN SC SCH ×4 (08:14→20:52)
[2019-12-14] MEDS: ASPIRIN 81 MG ECTAB PO SCH (08:26)
--- NOTE | 2019-12-14 09:59 | Progress Notes ---
DATE: 12/14/2019 SUBJECTIVE: The patient is nonverbal. She did not respond to anything for me. Blood pressure is still high. PHYSICAL EXAMINATION GENERAL: Nonverbal. VITAL SIGNS: Blood pressure is 194/77, pulse rate 60, temperature 36.8, 93% on room air. HEENT: Mucous membrane is moist. NECK: Supple. No jugular venous distention. CHEST: Limited exam but appears to be clear. CARDIOVASCULAR: S1 and S2, regular. ABDOMEN: Soft, nontender, obese. EXTREMITIES: Shows no edema. LABORATORY TESTS: From this morning shows sodium 141, potassium 4.0, chloride 111, BUN 26, calcium 10.2. CBC was unremarkable. ASSESSMENT AND PLAN: A 79-year-old female whom we have been seeing for hypertensive urgency and management. Blood pressure is still very high. We will try to streamline the regimen as follows: 1. Increased dose of clonidine to 0.1 mg t.i.d. 2. Change hydralazine to 100 mg t.i.d. 3. Continue metoprolol. 4. Increase the dose of spironolactone to 50 daily. 5. Continue the current dose of losartan and amlodipine. 6. If blood pressure is still high, I would consider changing metoprolol to carvedilol or labetalol as they tend to have more blood pressure lowering effect than metoprolol. After that, we may have to call her as resistant hypertension. There will be no further medication to add at that time. MTDD
--- NOTE | 2019-12-14 14:30 | Neurology Progress Note ---
Date of Service December 14, 2019 Assessment & Plan (1) Weakness: 1. less lethargic 2. correct lyte abnormalities 3. check B12, folate, thiamine 4. if not eating well may need thiamine started 5. treat any infectious processes 6. nephrology following 7. HTN - optimize 8. psychiatry for any changes in medications 9. continue Sinemet 25/100 mg TID for now. seems to be helping rigidity will be available for any further questions concerns. (2) HTN (hypertension): Admission and Anticipated Discharge Date Admission Date: December 05, 2019 Supervising Physician Co-Signing Physician Notes I have seen and discussed above patient with Dr Maged Proctor, neurology I saw Mrs. Jay today but unfortunately by the time I arrived she was lethargic and in her usual state that I observe i.e. laying in bed arms flexed head down on her chest and mumbling with some rigidity primarily of gegenhalten type yet with a paradoxical ability to hold up the correct number of fingers, follow simple commands, open her mouth, stick out her tongue and repeat consonants. There is some concern about her "playing possum" according to conversation to have the nursing staff yesterday but this fluctuation mental status may simply be part of her generalized encephalopathy What ever the case the examination by Kaye Elliott suggested that the Sinemet may be having a salutary effect on her rigidity and cogwheeling and bradykinesia so at this point while I am not impressed, I think we are justified in continuing it at the current dose and I will try to look at her again tomorrow hopefully at a time when she is little more receptive to visitation Maged Proctor MD Gio Alvarenga is a 79 year old obese female with PMH HTN, HLD, DM 2, history of CVA, SAH, depression and history of breast cancer sent from [facility] with increasing weakness and inability to pass urine. She was extremely weak and lethargic but today she is more alert and answering more questions. Given the complaints of extreme weakness and tiredness and with high blood pressure. She is easily aroused and follows commands. denies pain. no family in room Physical Exam Physical Exam: gen: alert with voice command lungs course breath sounds CV RRR knows she is in hospital, 2019 and sister name hand stock analyst bilateral 5/5 flex ext of elbows less rigid and minimal cogwheeling move toes with command tongue midline, opens eye with command Results & Data ([facility]) Vital Signs (Past 12 Hours) Vital Signs Temp Pulse Pulse Resp BP Pulse Ox 12/14/19 11:40 36.7 C 60 16 137/65 91 12/14/19 09:53 57 L 157/79 H 12/14/19 08:50 60 12/14/19 07:05 36.8 C 97 H 20 194/77 H 93 12/14/19 04:18 36.6 C 57 L 18 156/78 H 94 Laboratory Results Abnormal lab results 12/13/19 12/13/19 12/14/19 Range/Units 16:47 20:27 05:58 Chloride 111 H (98-107) mmol/L BUN 26 H (7-18) mg/dl BUN/Creatinine Ratio 31.6 H (10-20) Glucose 139 H (70-99) mg/dl POC Glucose 140 H 139 H (70-99) mg/dl Calcium 10.2 H (8.5-10.1) mg/dl 12/14/19 12/14/19 Range/Units 07:39 11:29 Chloride (98-107) mmol/L BUN (7-18) mg/dl BUN/Creatinine Ratio (10-20) Glucose (70-99) mg/dl POC Glucose 145 H 188 H (70-99) mg/dl Calcium (8.5-10.1) mg/dl Diagnostic Findings no new imaging (1) HTN (hypertension) Hypertension type: unspecified Qualified Code(s): I10 - Essential (primary) hypertension
[2019-12-14] MEDS: SERTRALINE HCL 50 MG TABLET PO SCH (20:35)
--- NOTE | 2019-12-14 21:55 | Hospitalist Progress Note ---
Date of Service December 14, 2019 Assessment & Plan (1) Acute UTI: Presented with urinary frequency, weakness, confusion. Urine culture grew Klebsiella pneumoniae. UTI-present on admission. Treated with course of ceftriaxone followed by cephalexin. Afebrile. (2) Altered mental status: Worsening confusion probable encephalopathy secondary to UTI. (3) Weakness: PT/OT. (4) HTN (hypertension): Hypertensive urgency at time of admission. Blood pressures improved. Continue metoprolol, amlodipine, losartan, clonidine, spironolactone. (5) DM II (diabetes mellitus, type II), controlled: Hold metformin during hospital stay. Insulin coverage per protocol. Fasting blood sugar today = 145. (6) Parkinsonian features: Noted to have some cogwheel rigidity. May or may not have underlying Parkinson's disease. Started on Sinemet with improvement. (7) DVT prophylaxis: SCD's. Ambulate as able. (8) Discharge planning issues: Case Management following. Anticipate need for skilled care. Admission and Anticipated Discharge Date Admission Date: December 05, 2019 Subjective Recheck for multiple problems. Patient seen in their room around 1600. Sleeping comfortably and not easily awakened. Nursing reports that she is a deep sleeper and she was well earlier in the day. Review of Systems: Unable to obtain. Physical Exam Constitutional: no acute distress Respiratory: no respiratory distress Auscultation: lungs clear to auscultation bilaterally Cardiovascular: Rate/Rhythm: regular rate and regular rhythm Vessels: no JVD Extremities: no calf tenderness and no edema Gastrointestinal (Abdomen): normal bowel sounds, soft, nontender, no hepatosplenomegaly Skin: no rashes, warm and dry Psychiatric: Orientation: + not alert Results & Data ([facility]) Vital Signs (Past 12 Hours) Vital Signs Temp Pulse Pulse Resp BP Pulse Ox 12/14/19 19:35 36.8 C 63 20 164/82 H 94 12/14/19 15:16 36.6 C 78 18 128/74 94 12/14/19 15:07 63 12/14/19 11:40 36.7 C 60 16 137/65 91 12/14/19 09:53 57 L 157/79 H Laboratory Results 12/14/19 05:58 (1) HTN (hypertension) Hypertension type: unspecified Qualified Code(s): I10 - Essential (primary) hypertension
[2019-12-15 07:04] LABS: BUN Creatinine Ratio 35.3 (10-20); Calcium 10.2 mg/dl (8.5-10.1); Creatinine Clr Calc Pharmacy 61.5 ml/min; Est GFR (African American) 76.6; Est GFR (Non-African American) 66.1; Potassium 3.9 mmol/L (3.5-5.1)
[2019-12-15] MEDS: HydrALAZINE TAB 50 MG TAB PO SCH ×3 (07:47→20:17)
[2019-12-15] MEDS: SPIRONOLACTONE 25 MG TAB PO SCH (07:47)
[2019-12-15] MEDS: AMLODIPINE BESYLATE 5 MG TAB PO SCH (07:48)
[2019-12-15] MEDS: ASPIRIN 81 MG ECTAB PO SCH (07:48)
[2019-12-15] MEDS: cloNIDine HCL 0.1 MG TAB PO SCH ×3 (07:48→20:19)
[2019-12-15] MEDS: LOSARTAN POTASSIUM 50 MG TAB PO SCH (07:48)
[2019-12-15] MEDS: METOPROLOL SUCC 25MG EXT REL TAB PO SCH (07:49)
[2019-12-15] MEDS: CARBIDOPA/LEVODOPA 25/100MG TAB PO SCH ×3 (07:49→20:17)
[2019-12-15] MEDS: METOPROLOL SUCC 50MG EXT REL TAB PO SCH (07:49)
[2019-12-15] MEDS: INSULIN GLARGINE SOLOSTAR 100 UNITS/ML 3 ML PEN SC SCH (07:56)
[2019-12-15] MEDS: INSULIN ASPART 100 UNITS/ML 3 ML PEN SC SCH ×4 (08:06→20:19)
--- NOTE | 2019-12-15 14:51 | Neurology Progress Note ---
Date of Service December 15, 2019 Assessment & Plan (1) Weakness: 1. lethargic 2. correct lyte abnormalities 3. check B12, folate, thiamine 4. if not eating well may need thiamine started 5. treat any infectious processes 6. nephrology following 7. HTN - optimize 8. psychiatry for any changes in medications 9. continue Sinemet 25/100 mg TID for now. seems to be helping rigidity 10 will see back in our office in 4-6 weeks for further evaluation- will sign off for now (2) HTN (hypertension): Admission and Anticipated Discharge Date Admission Date: December 05, 2019 Supervising Physician Co-Signing Physician Notes I have seen and discussed above patient with Dr Maged Proctor, neurology I have seen and examined this woman today and am pleased to state that she feels somewhat better but her headache is little more evident and she now admits to having occasional pressure type headaches. It is possible these of been migraine over the years and will get I recommend treatment with magnesium oxide riboflavin some gabapentin. She does have neuropathy but the neuropathy is not painful and she was to have this assessed by an EMG. Unfortunately now with the coronavirus EMG testing has been canceled indefinitely but this is something it could easily be done in the future. The gabapentin is unlikely to help any of her neuropathic symptoms however she really does not have pain Her blood pressures are under much better control and it is possible the entire syndrome was due to a low-grade emerging hypertensive urgency and she may have had an underlying urinary tract infection as well. 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 due to her vascular risk factors Still has some hesitation and word finding but otherwise with the exception of the findings relative to her polyneuropathy exam is normal there are no meningeal signs and at this point I think neurology can sign off with plans to see her in follow-up when we can arrange for return visit and at some point in the future obtain both the EMG and some neuropsych testing as I have the impression her cognitive issues are more than of recent onset may be due to an underlying vascular dementia and its early stages Maged Proctor MD Gio Alvarenga is a 79 year old obese female with PMH HTN, HLD, DM 2, history of CVA, SAH, depression and history of breast cancer sent from [facility] with increasing weakness and inability to pass urine. She was extremely weak and lethargic but today she is more alert and answering more questions. Given the complaints of extreme weakness and tiredness and with high blood pressure. She is not as alert today she is still following commands but limited. denies pain. no family in room Physical Exam Physical Exam: Gen: lethargy but responds with deep stimulation and voice commend lungs normal respiratory effort finger to nose but very slow moves all ext spontaneously not with command sensation intact to light touch cogwheeling but more resistant in movement Results & Data ([facility]) Vital Signs (Past 12 Hours) Vital Signs Temp Pulse Pulse Pulse Resp BP Pulse Ox 12/15/19 14:37 62 144/72 H 12/15/19 11:16 36.9 C 63 16 144/72 H 90 12/15/19 07:08 36.7 C 68 16 166/81 H 91 12/15/19 07:00 66 12/15/19 04:11 36.7 C 63 18 154/77 H 92 Laboratory Results Abnormal lab results 12/14/19 12/14/19 12/15/19 Range/Units 16:34 20:16 06:06 Chloride 111 H (98-107) mmol/L BUN 30 H (7-18) mg/dl BUN/Creatinine Ratio 35.3 H (10-20) Glucose 143 H (70-99) mg/dl POC Glucose 172 H 126 H (70-99) mg/dl Calcium 10.2 H (8.5-10.1) mg/dl 12/15/19 12/15/19 Range/Units 07:35 11:28 Chloride (98-107) mmol/L BUN (7-18) mg/dl BUN/Creatinine Ratio (10-20) Glucose (70-99) mg/dl POC Glucose 133 H 191 H (70-99) mg/dl Calcium (8.5-10.1) mg/dl Diagnostic Findings no new imaging (1) HTN (hypertension) Hypertension type: unspecified Qualified Code(s): I10 - Essential (primary) hypertension
[2019-12-15] MEDS: SERTRALINE HCL 50 MG TABLET PO SCH (20:16)
--- NOTE | 2019-12-15 20:47 | Nephrology Progress Note ---
Date of Service December 15, 2019 Assessment & Plan (1) Hypertensive urgency: goal sbp is 140s-150s for several days, then move to 120-130s over days systolic unless neurology favors different target -several new meds /med doses past 24 hrs -clonidine upped to tid, hydralazine dose upped; on spironolactone 50 mg now after 2 days of 25 mg -follow bp and daily bmp Present on Admission?: Yes Admission and Anticipated Discharge Date Admission Date: December 05, 2019 Subjective seen on rounds this am at 0850; remains obtunded/unresponsive and therefore ros not obtained Review of Systems Review of Systems: All systems reviewed & are unremarkable except as noted in HPI & below Physical Exam Constitutional: well developed, well nourished, comfortable and + lethargic (/obtunded); no acute distress ENMT: Ears: no external ear abnormality Nose: no external nose abnormality Mouth: + dry oral mucous membranes Neck: no nuchal rigidity Respiratory: normal respiratory effort Auscultation: lungs clear to auscultation bilaterally and + diminished lung sounds Cardiovascular: RRR, no murmur, no edema Gastrointestinal (Abdomen): Inspection/Auscultation: normal bowel sounds Percussion/Palpation: abdomen soft; abdomen nontender Musculoskeletal: Head/Neck/Chest: normocephalic Extremities: + limited ROM of extremities and + abnormal muscle tone Skin: no rashes, warm and dry Neurologic: obtunded, spastic RLE mvt otherwise not responsive to gentle stimulation Results & Data ([facility]) Vital Signs (Past 12 Hours) Vital Signs Temp Pulse Pulse Pulse Resp BP Pulse Ox 12/15/19 19:39 36.8 C 63 20 115/65 91 12/15/19 15:32 61 12/15/19 15:11 36.7 C 63 16 112/66 92 12/15/19 14:37 62 144/72 H 12/15/19 11:16 36.9 C 63 16 144/72 H 90 Laboratory Results 12/10/19 07:25 12/15/19 06:06
--- NOTE | 2019-12-15 21:35 | Hospitalist Progress Note ---
Date of Service December 15, 2019 Assessment & Plan (1) Acute UTI: Presented with urinary frequency, weakness, confusion. Urine culture grew Klebsiella pneumoniae. UTI-present on admission. Treated with course of ceftriaxone followed by cephalexin. Afebrile. (2) Altered mental status: Worsening confusion probable encephalopathy secondary to UTI. (3) Weakness: PT/OT. (4) HTN (hypertension): Hypertensive urgency at time of admission. Blood pressures improved. Continue metoprolol, amlodipine, losartan, clonidine, spironolactone. (5) DM II (diabetes mellitus, type II), controlled: Hold metformin during hospital stay. Insulin coverage per protocol. Fasting blood sugar today = 133. (6) Parkinsonian features: Noted to have some cogwheel rigidity. 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 Started on Sinemet with improvement. (7) DVT prophylaxis: SCD's. Ambulate as able. (8) Discharge planning issues: Case Management following. Anticipate need for skilled care. Admission and Anticipated Discharge Date Admission Date: December 05, 2019 Subjective Recheck for multiple problems. Patient seen in their room around 0930. Sleeping at time of my assessment and difficulty to awaken. Staff reports fluctuating mental status since admissions. Awakens when hungry and eating well with assistance. Participates with PT, but functional status is poor. Review of Systems: Unable to obtain due to somnolence. Physical Exam Constitutional: no acute distress Respiratory: no respiratory distress Auscultation: lungs clear to auscultation bilaterally Cardiovascular: Rate/Rhythm: regular rate and regular rhythm Vessels: no JVD Extremities: no calf tenderness and no edema Gastrointestinal (Abdomen): normal bowel sounds, soft, nontender, no hepatosplenomegaly Skin: no rashes, warm and dry Psychiatric: Orientation: + not alert Results & Data ([facility]) Vital Signs (Past 12 Hours) Vital Signs Temp Pulse Pulse Pulse Resp BP Pulse Ox 12/15/19 19:39 36.8 C 63 20 115/65 91 12/15/19 15:32 61 12/15/19 15:11 36.7 C 63 16 112/66 92 12/15/19 14:37 62 144/72 H 12/15/19 11:16 36.9 C 63 16 144/72 H 90 Laboratory Results Laboratory Results - last 24 hr 0312/15/19 12/15/19 06:06 06:06 06:06 Sodium Potassium Chloride Carbon Dioxide Anion Gap BUN Creatinine Est Cr Clr Drug Dosing Est GFR ( Amer) Est GFR (Non-Af Amer) BUN/Creatinine Ratio Glucose POC Glucose Calcium Ionized Calcium 1.27 Vitamin B1 Pending Vitamin B12 407 12/15/19 12/15/19 12/15/19 06:06 07:35 11:28 Sodium 143 Potassium 3.9 Chloride 111 H Carbon Dioxide 27 Anion Gap 5.0 BUN 30 H Creatinine 0.84 Est Cr Clr Drug Dosing 61.5 Est GFR ( Amer) 76.6 Est GFR (Non-Af Amer) 66.1 BUN/Creatinine Ratio 35.3 H Glucose 143 H POC Glucose 133 H 191 H Calcium 10.2 H Ionized Calcium Vitamin B1 Vitamin B12 12/15/19 12/15/19 16:54 20:00 Sodium Potassium Chloride Carbon Dioxide Anion Gap BUN Creatinine Est Cr Clr Drug Dosing Est GFR ( Amer) Est GFR (Non-Af Amer) BUN/Creatinine Ratio Glucose POC Glucose 161 H 231 H Calcium Ionized Calcium Vitamin B1 Vitamin B12 (1) HTN (hypertension) Hypertension type: unspecified Qualified Code(s): I10 - Essential (primary) hypertension
[2019-12-16 06:21] LABS: Hematocrit (blood only) 39.8 % (37-47); Mean Corpuscular Hgb Conc 32.7 g/dL (32-36); Mean Corpuscular Volume 91.9 fL (80-100); Mean Platelet Volume 9.3 fL (7.4-10.4); Platelet Count 276 K/uL (130-400); RDW Standard Deviation 47.5 fL (36.4-46.3); Red Blood Count 4.33 M/uL (4.2-5.4); White Blood Count 6.48 K/uL (4.8-10.8)
[2019-12-16 06:48] LABS: Estimated Average Glucose 189 mg/dl; Hemoglobin A1C 8.2 % (4.5-5.6)
[2019-12-16 06:50] LABS: BUN Creatinine Ratio 37.3 (10-20); Calcium 10.1 mg/dl (8.5-10.1); Creatinine Clr Calc Pharmacy 53.2 ml/min; Est GFR (African American) 63.6; Est GFR (Non-African American) 54.9; Potassium 3.8 mmol/L (3.5-5.1)
--- NOTE | 2019-12-16 07:37 | Nephrology Progress Note ---
Date of Service December 16, 2019 Assessment & Plan (1) Hypertensive urgency: goal sbp is 140s-150s for several days, then move to 120-130s over days systolic unless neurology favors different target -several new meds /med doses past 36 hrs >> would not make changes today but simply observe -clonidine upped to tid, hydralazine dose upped; on spironolactone 50 mg now (today is second day) after 2 days of 25 mg -follow bp and daily bmp Admission and Anticipated Discharge Date Admission Date: December 05, 2019 Subjective most recent blood pressure is high but trends yesterday have been acceptable control >> she actually answers a few questions to day >> answers (with delay) good morning and denies pain Review of Systems Review of Systems: All systems reviewed & are unremarkable except as noted in HPI & below Physical Exam Constitutional: well developed, well nourished, comfortable and + lethargic (/obtunded mostly but does answer a few questions today); no acute distress ENMT: Ears: no external ear abnormality Nose: no external nose abnormality Mouth: + dry oral mucous membranes Neck: no nuchal rigidity Respiratory: normal respiratory effort Auscultation: lungs clear to auscultation bilaterally and + diminished lung sounds Cardiovascular: RRR, no murmur, no edema Gastrointestinal (Abdomen): Inspection/Auscultation: normal bowel sounds Percussion/Palpation: abdomen soft; abdomen nontender Musculoskeletal: Head/Neck/Chest: normocephalic Extremities: + limited ROM of extremities, + abnormal strength and + abnormal muscle tone today in different position w/ LUE flexed, head turned to L; keeps eyes closed Skin: no rashes, warm and dry Neurologic: + obtunded Results & Data ([facility]) Vital Signs (Past 12 Hours) Vital Signs Temp Pulse Pulse Resp BP Pulse Ox 12/16/19 04:00 36.7 C 63 20 189/77 H 93 12/16/19 01:48 57 L 12/15/19 23:00 36.7 C 64 20 125/69 92 12/15/19 19:39 36.8 C 63 20 115/65 91 Laboratory Results 12/16/19 06:04 12/16/19 06:04
[2019-12-16] MEDS: HydrALAZINE TAB 50 MG TAB PO SCH ×2 (08:06→15:14)
[2019-12-16] MEDS: cloNIDine HCL 0.1 MG TAB PO SCH ×2 (08:06→15:14)
[2019-12-16] MEDS: METOPROLOL SUCC 50MG EXT REL TAB PO SCH (08:07)
[2019-12-16] MEDS: CARBIDOPA/LEVODOPA 25/100MG TAB PO SCH ×2 (08:07→15:15)
[2019-12-16] MEDS: SPIRONOLACTONE 25 MG TAB PO SCH (08:07)
[2019-12-16] MEDS: LOSARTAN POTASSIUM 50 MG TAB PO SCH (08:08)
[2019-12-16] MEDS: ASPIRIN 81 MG ECTAB PO SCH (08:09)
[2019-12-16] MEDS: AMLODIPINE BESYLATE 5 MG TAB PO SCH (08:09)
[2019-12-16] MEDS: METOPROLOL SUCC 25MG EXT REL TAB PO SCH (08:09)
[2019-12-16] MEDS: INSULIN GLARGINE SOLOSTAR 100 UNITS/ML 3 ML PEN SC SCH (08:11)
[2019-12-16] MEDS: INSULIN ASPART 100 UNITS/ML 3 ML PEN SC SCH ×2 (08:12→12:02)
--- NOTE | 2019-12-16 14:05 | Hospitalist Progress Note ---
Date of Service December 16, 2019 Assessment & Plan (1) Acute UTI: Presented with urinary frequency, weakness, confusion. Urine culture grew Klebsiella pneumoniae. UTI-present on admission. Treated with course of ceftriaxone followed by cephalexin. Afebrile. (2) Altered mental status: Worsening confusion probable encephalopathy secondary to UTI. Seen in consultation by Neuro. 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 No evidence of PROSTHETIC ASSISTANT infection. Fluctuating mental status, sometimes deeply somnolent, but awakens for meals, follows instructions, and participates in therapies. Improved, but not yet back to baseline. (3) Weakness: PT/OT. (4) HTN (hypertension): Hypertensive urgency at time of admission. Blood pressures improved. Continue metoprolol, amlodipine, losartan, clonidine, spironolactone. (5) DM II (diabetes mellitus, type II), controlled: Hold metformin during hospital stay. Insulin coverage per protocol. Fasting blood sugar today = 176. Resume metformin at time of discharge. Follow blood sugars; add insulin coverage if necessary. (6) Parkinsonian features: Noted to have some cogwheel rigidity. May or may not have underlying Parkinson's disease; could have Parkinsonism from other PROSTHETIC ASSISTANT disease. Started on Sinemet with improvement. (7) DVT prophylaxis: SCD's. Ambulate as able. (8) Discharge planning issues: Case Management following. Poor functional status. Arrangements being made for transfer to [facility] for skilled care. Admission and Anticipated Discharge Date Admission Date: December 05, 2019 Subjective Recheck for multiple problems. Patient seen in their room around 0740. Awake, answers questions. Slow mentation. Denies chest pain, SOB, nausea, vomiting, pain. Review of Systems: Unable to obtain full ROS due to cognitive status. Physical Exam Constitutional: no acute distress Respiratory: no respiratory distress Auscultation: lungs clear to auscultation bilaterally Cardiovascular: Rate/Rhythm: regular rate and regular rhythm Vessels: no JVD Extremities: no calf tenderness and no edema Gastrointestinal (Abdomen): normal bowel sounds, soft, nontender, no hepatosplenomegaly Skin: no rashes, warm and dry Psychiatric: Orientation: alert; + not oriented x 3 (oriented to person, [place], 2019) Results & Data ([facility]) Vital Signs (Past 12 Hours) Vital Signs Temp Pulse Pulse Resp BP Pulse Ox 12/16/19 11:22 36.7 C 60 18 123/65 91 12/16/19 08:43 53 L 12/16/19 07:34 36.8 C 66 18 168/96 H 91 12/16/19 04:00 36.7 C 63 20 189/77 H 93 Laboratory Results Laboratory Results - last 24 hr 12/15/19 12/15/19 12/16/19 16:54 20:00 06:04 WBC 6.48 RBC 4.33 Hgb 13.0 Hct 39.8 MCV 91.9 MCH 30.0 MCHC 32.7 RDW Std Deviation 47.5 H RDW Coeff of Justin 14.0 Plt Count 276 MPV 9.3 Sodium Potassium Chloride Carbon Dioxide Anion Gap BUN Creatinine Est Cr Clr Drug Dosing Est GFR ( Amer) Est GFR (Non-Af Amer) BUN/Creatinine Ratio Glucose POC Glucose 161 H 231 H Estimat Average Glucose Hemoglobin A1c Calcium 12/16/19 12/16/19 12/16/19 06:04 06:04 07:42 WBC RBC Hgb Hct MCV MCH MCHC RDW Std Deviation RDW Coeff of Justin Plt Count MPV Sodium 144 Potassium 3.8 Chloride 112 H Carbon Dioxide 27 Anion Gap 5.0 BUN 37 H Creatinine 0.98 Est Cr Clr Drug Dosing 53.2 Est GFR ( Amer) 63.6 Est GFR (Non-Af Amer) 54.9 BUN/Creatinine Ratio 37.3 H Glucose 152 H POC Glucose 176 H Estimat Average Glucose 189 Hemoglobin A1c 8.2 H Calcium 10.1 12/16/19 11:40 WBC RBC Hgb Hct MCV MCH MCHC RDW Std Deviation RDW Coeff of Justin Plt Count MPV Sodium Potassium Chloride Carbon Dioxide Anion Gap BUN Creatinine Est Cr Clr Drug Dosing Est GFR ( Amer) Est GFR (Non-Af Amer) BUN/Creatinine Ratio Glucose POC Glucose 163 H Estimat Average Glucose Hemoglobin A1c Calcium (1) HTN (hypertension) Hypertension type: unspecified Qualified Code(s): I10 - Essential (primary) hypertension
--- NOTE | 2019-12-16 14:20 | Discharge Summary ---
Date of Service Date of Admission: 12/04/19 Date of Discharge: 12/16/19 Admission HPI Per Admitting Provider She is a 79-year-old obese female with significant past medical history of hypertension, hyperlipidemia, type 2 diabetes, history of CVA, history of subarachnoid hemorrhage, depression and history of breast cancer apparently was sent from [facility] this afternoon with increasing weakness and inability to pass urine. She remains extremely weak and lethargic but denies any symptoms of chest pain, shortness of breath, abdominal pain, nausea and or vomiting, any headache and/or blurred vision or any increasing weakness involving any particular side of the body. She mentioned to have some problem with urination without any dysuria and she thinks that has been taken care of in the emergency room. Denies any problem with her bowel habit. Her relevant investigations in the ER including UA, chest x-ray, CT scan of the head and other blood works remained unremarkable. Given the complaints of extreme weakness and tiredness and with high blood pressure in the emergency ro om in spite of multiple medications for the blood pressure she was admitted to medical floor with observation for continuation of care. Principal Diagnosis urinary tract infection encephalopathy hypertensive urgency Discharge Data Allergies Allergy/AdvReac Type Severity Reaction Status Date / Time Sulfa (Sulfonamide AdvReac Unknown Unverified 12/04/19 15:29 Antibiotics) Consultations 12/04/19 16:41 ED Decision to Admit Stat 12/06/19 10:03 Consult Case Management - Discharge Planning Routine 12/07/19 13:51 Consult Psychiatry Routine 12/08/19 19:24 Consult Neurology Routine 12/12/19 10:01 Consult Gastroenterology Routine 12/13/19 11:50 Consult Nephrology Routine Ordered Studies 12/04/19 14:41 CT head/brain wo con Stat 12/12/19 13:00 US liver Routine Hospital Course (1) Acute UTI: Presented with urinary frequency, weakness, confusion. Urine culture grew Klebsiella pneumoniae. UTI-present on admission. Treated with course of ceftriaxone followed by cephalexin. Afebrile. (2) Altered mental status: Worsening confusion probable encephalopathy secondary to UTI. Seen in consultation by Neuro. 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 Fluctuating mental status, sometimes deeply somnolent, but awakens for meals, follows instructions, and participates in therapies. Improved, but not yet back to baseline. (3) Weakness: PT/OT. (4) HTN (hypertension): Hypertensive urgency at time of admission. Blood pressures improved. Continue metoprolol, amlodipine, losartan, clonidine, spironolactone. (5) DM II (diabetes mellitus, type II), controlled: Held metformin during hospital stay. Insulin coverage per protocol. Fasting blood sugar day of discharge was 176. Resume metformin at time of discharge. Follow blood sugars; add insulin coverage if necessary. (6) Parkinsonian features: Noted to have some cogwheel rigidity. May or may not have underlying Parkinson's disease; could have Parkinsonism from other TANKER TRUCK DRIVER disease. Started on Sinemet with improvement. (7) DVT prophylaxis: SCD's. Ambulate as able. (8) Discharge planning issues: Poor functional status. Arrangements being made for transfer to [facility] for skilled care. Total Time Total Time Spent Total Time Spent (In Minutes): 45 Discharge Plan Discharge Items Patient Disposition: Transfer Detention Fac Reason For Visit: weakness, confusion Discharge Diagnosis: urinary tract infection encephalopathy hypertensive urgency Condition on Discharge: Fair Activity: As commented below Activity Comment: As tolerated with walker and assistance. Non-emergency contact: Primary Care Provider and Hospitalist Call non-emergency contact if: you have any medication questions, your symptoms worsen and your temperature is above 101 Diet: Carb Consistent or DM2 and Heart Healthy Diet Texture: Dental soft (bite-sized) Addtl Attending Provider Instructions: Fall precautions. Aspiration precautions. Needs assistance with eating and drinking. Skin precautions. Reposition at least every 2 hours. Delirium precautions. Fingerstick blood sugars AC + HS. Please check basic metabolic profile weekly until stable, then as clinically indicated. Please note that patient has fluctuating mental status and can be very deep sleeper. Thank you for receiving this patient in transfer. Please call if you have any questions. Maged Risa Pending Studies at Discharge: No Stand-Alone Forms: My [facility] Skilled Items Patient informed of condition?: Yes DNR: Yes Discharge Level of Care: Skilled Communicable Disease: No Discharge Prognosis: Improving Lines: None Urinary Catheter: No Medications and DC Order Prescriptions: New clonidine HCl 0.1 mg Tablet 0.1 mg PO TID 30 Days Qty: 90 RF: 0 hydralazine 50 mg Tablet 100 mg PO TID 30 Days Qty: 180 RF: 0 carbidopa-levodopa 25-100 mg Tablet 1 tab PO TID 30 Days Qty: 90 RF: 0 sertraline 50 mg Tablet 50 mg PO HS 30 Days Qty: 30 RF: 0 amlodipine 10 mg tablet 10 mg PO DAILY 30 Days Qty: 30 RF: 0 spironolactone 50 mg tablet 50 mg PO DAILY 30 Days Qty: 30 RF: 0 Continued metoprolol succinate 25 mg Tablet Extended Release 24 Hr 25 mg PO QAM RF: 0 atorvastatin 10 mg Tablet 10 mg PO QAM RF: 0 metoprolol succinate 50 mg Tablet Extended Release 24 Hr 50 mg PO QAM RF: 0 aspirin [Aspirin Low Dose] 81 mg Tablet,Delayed Release (Dr/Ec) 81 mg PO QAM RF: 0 acetaminophen 500 mg Tablet 1,000 mg PO BID MDD 3GM APAP IN 24 HRS PRN (Reason: Pain) RF: 0 metformin 1,000 mg Tablet 1,000 mg PO QAM RF: 0 losartan 100 mg Tablet 100 mg PO QAM RF: 0 Discontinued amlodipine 5 mg tablet 5 mg PO QAM RF: 0 sertraline 100 mg Tablet 150 mg PO QAM RF: 0 bupropion HCl [Wellbutrin XL] 150 mg Tablet Extended Release 24 Hr 150 mg PO QAM RF: 0 Admission Data Admit Date/Time: 12/05/19 13:54 Attending Provider: Maged Lord Admit Provider: Leah Ordonez Primary Care Provider: Woody Khalil Other Providers: Torsten Villanueva [facility] ; Leah Ordonez ; Nestor Resendiz ; Ra Coleman ; Jenna Srivastava ; Joshua Chris ; Ricardo Mayes ; Manuel Terrazas ; Eileen Mcdaniel ; Davie Terrell ; Meeta Queen ; Sridevi Harris ; Krystal Virk ; Erendira Ventura ; Woody Watts I. ; Meghan Dominguez ; Trisha Washington ; Asia Herrera ; Gwyn Carpenter ; Elpidio Gregorio ; Clay Recinos ; Chloe Nelson ; Isai Oconnell ; Gove,Crest
--- NOTE | 2019-12-16 14:45 | Communication Note ---
Date of Service: December 16, 2019 Phone report give to Cara LANGE at [facility].
--- NOTE | 2019-12-20 21:36 | Communication Note ---
Date of Service: December 20, 2019 Thiamine level pending at time of discharge. Result received 12/16 and level was 6. SNFist PA at [facility] notified 12/17. Thiamine replacement recommended.
== END 2019-12-16 15:47 | DRG 689 ==
LOC: 4W 14:32 → ED 14:32 → SUATTDRO 17:05 → 4W 18:42 → SUATTDRO 12-05 13:54 → 2W 12-05 18:04